=== PATIENT | female | born 1945 | race Caucasian/White ===

== ENCOUNTER 2019-03-13 09:36 | Day surgery (SDC) | payer MEDICARE ==
[2019-03-13] MEDS ORDERED: LIDOcaine 2% 5ml jelly ONE (09:57)
[2019-04-30] MEDS ORDERED: METO-539 PO (03:23)
[2019-04-30] MEDS ORDERED: METF500T PO (03:23)
[2019-04-30] MEDS ORDERED: LEVO25TA2 PO (03:23)
[2019-04-30] MEDS ORDERED: ALLO100T PO (03:23)
[2019-04-30] MEDS ORDERED: ESCI5TAB PO (03:23)
[2019-04-30] MEDS ORDERED: TEMA30CA5 PO (03:23)
[2019-04-30] MEDS ORDERED: GABA-532 PO (03:23)
[2019-04-30] MEDS ORDERED: AMLO2.5T2 PO (03:23)
[2019-04-30] MEDS ORDERED: LISI1TAB28 PO (03:23)
[2019-04-30] MEDS ORDERED: SIMV5TAB58 PO (03:23)
[2019-05-02] MEDS ORDERED: ASPI81TA52 PO (10:46)
== END 2019-03-13 12:09 | disposition home or self-care (01) ==
LOC: WOUND CARE 09:36
PROVIDERS: ATTEND Surgery
DX: E11.621 Type 2 diabetes mellitus with foot ulcer (principal); L97.522 Non-pressure chronic ulcer of other part of left foot with fat layer exposed; E11.622 Type 2 diabetes mellitus with other skin ulcer; L98.492 Non-pressure chronic ulcer of skin of other sites with fat layer exposed; E11.65 Type 2 diabetes mellitus with hyperglycemia; E78.5 Hyperlipidemia, unspecified; I10 Essential (primary) hypertension
CPT/HCPCS: 11042; 36416; 82948; A6209; A4663; A6021; A6154

== ENCOUNTER 2019-03-20 09:02 | Day surgery (SDC) | payer MEDICARE ==
[2019-03-20] MEDS ORDERED: LIDOcaine 2% 5ml jelly ONE (10:10)
[2019-04-30] MEDS ORDERED: ESCI5TAB PO (03:23)
[2019-04-30] MEDS ORDERED: AMLO2.5T2 PO (03:23)
[2019-04-30] MEDS ORDERED: LISI1TAB28 PO (03:23)
[2019-04-30] MEDS ORDERED: METF500T PO (03:23)
[2019-04-30] MEDS ORDERED: GABA-532 PO (03:23)
[2019-04-30] MEDS ORDERED: LEVO25TA2 PO (03:23)
[2019-04-30] MEDS ORDERED: SIMV5TAB58 PO (03:23)
[2019-04-30] MEDS ORDERED: METO-539 PO (03:23)
[2019-04-30] MEDS ORDERED: TEMA30CA5 PO (03:23)
[2019-04-30] MEDS ORDERED: ALLO100T PO (03:23)
[2019-05-02] MEDS ORDERED: ASPI81TA52 PO (10:46)
== END 2019-03-20 10:55 | disposition home or self-care (01) ==
LOC: WOUND CARE 09:02
PROVIDERS: ATTEND Surgery
DX: E11.621 Type 2 diabetes mellitus with foot ulcer (principal); L97.522 Non-pressure chronic ulcer of other part of left foot with fat layer exposed; E11.622 Type 2 diabetes mellitus with other skin ulcer; L98.492 Non-pressure chronic ulcer of skin of other sites with fat layer exposed; E11.65 Type 2 diabetes mellitus with hyperglycemia; E78.5 Hyperlipidemia, unspecified; I10 Essential (primary) hypertension
CPT/HCPCS: 36416; 82948; A4663; A6021; A6154

== ENCOUNTER 2019-04-03 09:25 | Day surgery (SDC) | payer MEDICARE ==
[2019-04-03] MEDS ORDERED: LIDOcaine 2% 5ml jelly ONE (10:28)
[2019-04-30] MEDS ORDERED: TEMA30CA5 PO (03:23)
[2019-04-30] MEDS ORDERED: METO-539 PO (03:23)
[2019-04-30] MEDS ORDERED: SIMV5TAB58 PO (03:23)
[2019-04-30] MEDS ORDERED: METF500T PO (03:23)
[2019-04-30] MEDS ORDERED: LISI1TAB28 PO (03:23)
[2019-04-30] MEDS ORDERED: ESCI5TAB PO (03:23)
[2019-04-30] MEDS ORDERED: LEVO25TA2 PO (03:23)
[2019-04-30] MEDS ORDERED: GABA-532 PO (03:23)
[2019-04-30] MEDS ORDERED: AMLO2.5T2 PO (03:23)
[2019-04-30] MEDS ORDERED: ALLO100T PO (03:23)
[2019-05-02] MEDS ORDERED: ASPI81TA52 PO (10:46)
== END 2019-04-03 11:26 | disposition home or self-care (01) ==
LOC: WOUND CARE 09:25
PROVIDERS: ATTEND Surgery
DX: E11.621 Type 2 diabetes mellitus with foot ulcer (principal); L97.522 Non-pressure chronic ulcer of other part of left foot with fat layer exposed; E11.622 Type 2 diabetes mellitus with other skin ulcer; L98.492 Non-pressure chronic ulcer of skin of other sites with fat layer exposed; E11.65 Type 2 diabetes mellitus with hyperglycemia; E78.5 Hyperlipidemia, unspecified; I10 Essential (primary) hypertension
CPT/HCPCS: 36416; 82948; A4663; A6021; A6154

== ENCOUNTER 2025-01-24 03:14 | Inpatient (IN) | payer MEDICARE, MEDICAID ==
[~2025-01-24] VITALS: Ht 160 cm; Wt 77.5 kg
[2025-01-24] VITALS (17 sets, daily range): BP systolic 94–119; BP diastolic 37–55; PULSE 71–142; RESP 9–18; O2SAT 91–98
[~2025-01-24 03:14] MED LIST: ALLO100T PO; AMLO2.5T2 PO; ASPI81TA52 PO; ESCI5TAB PO; GABA-532 PO; LEVO25TA2 PO; LISI1TAB51 PO; METF500T PO; METO-539 PO; SIMV5TAB58 PO; TEMA30CA5 PO
[2025-01-24] MEDS ORDERED: NORepinephrine 32mg/250mL bag 250 ML IV SCH (03:25)
--- NOTE | 2025-01-24 03:33 | Physician Documentation ---
History of Present Illness ~ Stated Complaint: NJOC Time Seen by MD: 03:22 HPI Patient presents to the emergency room as a transfer from [facility]. Patient was brought to the emergency room for 4-5 days of vomiting and diarrhea. Family brought her in because she began to be altered. Workup at sending facility showed that she was septic with urinary tract infection. Zosyn ordered for the infectious process. Patient became hypotensive in his requiring pressors. History of atrial fibrillation not on in his to coagulation secondary to fall risk. Patient does have residual right-sided deficits secondary to previous stroke. Also noted large decubitus ulcer on sacrum that goes to the bone. Workup also showed that patient is an acute renal failure. Concern for possible fluid overload therefore only 500 cc of IV fluid was administered. Patient's medical history in addition to atrial fibrillation shows GERD, dyslipidemia, hypertension, hypothyroid Medication Reconciliation Allergies: Coded Allergies: zolpidem (Verified Allergy, Mild, 01/24/25) PATIENT TOOK AMBIEN AND THEN SET HER KITCHEN ON FIRE COOKING IN HER SLEEP Scheduled Amlodipine Besylate (Amlodipine Besylate), 1 TAB PO DAILY, (Reported) Atorvastatin Calcium (Atorvastatin Calcium), 1 TAB PO DAILY, (Reported) Baclofen (Baclofen), 1 TAB PO TID, (Reported) Clopidogrel Bisulfate (Clopidogrel), 1 TAB PO DAILY, (Reported) Escitalopram Oxalate (Escitalopram Oxalate), 1 TAB PO DAILY, (Reported) Gabapentin (Gabapentin), 200 MG PO TID, (Reported) Omeprazole (Omeprazole), 1 CAP PO TID, (Reported) Scheduled PRN Hydroxyzine Hcl* (Atarax*), 1 TAB PO TID PRN for ITCHING, (Reported) Discontinued Medications Allopurinol* (Allopurinol*), 2 TAB PO DAILY, (Reported) Discontinued Reason: patient no longer taking Amlodipine* (Norvasc*), 4 TAB PO DAILY, (Reported) Discontinued Reason: Other Aspirin (Aspirin EC), 1 TABLET PO DAILY Discontinued Reason: patient no longer taking Escitalopram Oxalate* (Lexapro*), 2 TAB PO DAILY, (Reported) Discontinued Reason: patient no longer taking Gabapentin (Gabapentin), 1 CAP PO Q6H, (Reported) Discontinued Reason: patient no longer taking Lisinopril/Hydrochlorothiazide (Lisinopril-Hctz 20-12.5 mg Tab), 1 TAB PO BID, (Reported) Discontinued Reason: completed med therapy Metformin Hcl* (Glucophage*), 2 TAB PO Q12H, (Reported) Discontinued Reason: patient no longer taking Metoprolol Succinate* (Toprol Xl*), 1 TAB PO BID, (Reported) Discontinued Reason: patient no longer taking Simvastatin* (Zocor*), 2 TAB PO DAILY, (Reported) Discontinued Reason: patient no longer taking Temazepam* (Restoril*), 1 CAP PO HS, (Reported) Discontinued Reason: patient no longer taking levothyroxine sodium* (Synthroid*), 3 TAB PO DAILY, (Reported) Discontinued Reason: patient no longer taking Past Medical History Past Medical History: High Cholesterol, Hypertension, Diabetes Past Surgical History: noncontributory Alcohol Use: None Drug Use: none Review of Systems ROS All review of systems negative except as per HPI Physical Exam Physical Exam General: Patient is awake, alert, oriented x4 in no acute distress and well appearing.~ Head: Normocephalic and atraumatic. Eyes: Conjunctival normal. EOMI. PERRL. ENT: Mucous membranes moist. Neck: Supple, trachea is midline. Chest: Clear to auscultation bilaterally without rales, rhonchi, or wheezes. There is no accessory muscle use or retractions. Cardiac: RRR without murmurs, gallops, or rubs. Neuro: Noted residual right-sided deficits Progress Progress Note Spoke with historiography professor who is aware of patient Results/Orders Results/Orders Orders - ASHISH ORTEZ MD Cbc/Diff (01/24/25 03:34) BMP (01/24/25 03:34) Norepinephrine 8mg/ 250ml Ns (Norepineph (01/24/25 03:40) Normal Saline 1000ml (Sodium Chloride 10 (01/24/25 04:40) Completed Orders - ASHISH ORTEZ MD Norepinephrine 32mg/250ml Bag (Norepinep (01/24/25 03:25) Electrocardiogram (01/24/25 03:34) Diltiazem Iv (Cardizem Iv 5mg/Ml Inj.) (01/24/25 03:45) Normal Saline 1000ml (Sodium Chloride 10 (01/24/25 03:45) Medications Received in ER Medications (Trade) Dose Ordered Sig/Nikita Route PRN Reason Start Time Stop Time Status Last Admin Dose Admin Norepinephrine Bitartrate 250 ml @ 12.188 mls/ hr [id number] IV 01/24/25 03:40 01/24/25 03:51 12.188 MLS/HR (Cardizem IV 5mg/ ml inj.) 5 mg ONCE ONCE IV 01/24/25 03:45 01/24/25 03:46 DC 01/24/25 03:57 5 MG Sodium Chloride 1,000 ml @ 1,000 mls/hr ONCE ONCE IV 01/24/25 03:45 01/24/25 04:44 DC 01/24/25 03:53 1,000 MLS/HR Sodium Chloride 1,000 ml @ 1,000 mls/hr ONCE ONCE IV 01/24/25 04:40 01/24/25 05:39 01/24/25 04:40 1,000 MLS/HR Vital Signs 01/24/25 01/24/25 01/24/25 01/24/25 03:17 03:51 03:57 04:02 Temp 97.5 Pulse 142 142 Resp 16 14 B/P (MAP) 104/59 79/51 118/56 Pulse Ox 100 O2 Flow Rate 0 01/24/25 01/24/25 04:28 04:32 Pulse 130 87 Resp 14 13 B/P (MAP) 91/57 (68) 115/53 (73) Pulse Ox 97 97 Laboratory Tests Test 01/24/25 04:26 CBC Comment Chemistry Comments Medical Decision Making Findings Patient presents to the emergency room as a transfer for urosepsis from [facility]. She is on pressors. Precision Jig Grinder consulted. Patient does appear dry along with acute renal failure therefore additional IV fluids have been ordered. Departure Admitted to Inpatient Unit: yes, to historiography professor Impression: Primary Impression: Sepsis Additional Impressions: Urinary tract infection Metabolic encephalopathy Decubitus ulcer Acute kidney failure Condition: Critical Referrals: NO PRIMARY CARE PROVIDER (PCP) Critical Care Note Total Time (mins): 55 Critical Care Note The very real possibility of a deterioration of this patient's condition required the highest level of my preparedness for sudden, emergent intervention. I provided critical care services, which included medication orders, frequent reevaluations of the patient's condition and response to treatment, ordering and reviewing test results, and discussing the case with various consultants. Excludes time spent performing separately billable procedures. The critical care time associated with the care of the patient was 55 minutes not counting procedures Signature Scribe Signature: No scribe Attestation: The note accurately reflects work and decisions made by me.Ashish Ortez MD 01/24/25 05:05 ASHISH ORTEZ MD Jan 24, 2025 03:33
[2025-01-24] MEDS: NORepinephrine 8mg/ 250ml NS 250 ML IV SCH (03:51)
[2025-01-24] MEDS: normal saline 1000ml 1,000 ML IV ONE ×2 (03:53→04:40)
[2025-01-24] MEDS: diltiazem 5mg/ml 5ml inj. IV ONE (03:57)
--- NOTE | 2025-01-24 04:15 | ELECTROCARDIOGRAPH REPORT ---
[facility] Test Date: 2025-01-24 Test Time: 04:14:42 Pat Name: JADE VIZCAINO Department: EMERGENCY ROOM Room: [facility] 2008 Gender: F Ski Tow Operator: RIGOBERTO : 1945 Requested By: CYNTHIA STEINBERG Order Number: [id number] Reading MD: Dr. Kevin Martinez Measurements Intervals [place] Rate: 122 P: 0 TX: 0 QRS: 43 QRSD: 111 T: 120 QT: 322 QTc: 459 Interpretive Statements Atrial fibrillation Low voltage, extremity and precordial leads Abnormal T, consider ischemia, lateral leads Electronically Signed On 01-24-2025 6:10:[address] Kevin Martinez Please click the below link to view image of tracing.
[2025-01-24] MEDS ORDERED: AMLO-708 PO (04:39)
[2025-01-24] MEDS ORDERED: BACL5TAB PO (04:39)
[2025-01-24] MEDS ORDERED: CLOP75TA34 PO (04:39)
[2025-01-24] MEDS ORDERED: ATOR-2 PO (04:39)
--- NOTE | 2025-01-24 04:51 | HISTORY AND PHYSICAL ---
History & Physical - Short Providers to CC ~ History of Present Illness Chief Complain & History Patient is a 79-year-old female who was taken to [place] ER [facility] from [facility]. In the ER she was hypoxic central line was placed and received 1 L of LR and started on Levophed after receiving Zosyn. Patient apparently is bedridden and has 10 cm decubitus ulcer. The labs at other facility showed white blood cell of 28,000 and hemoglobin of 10.4 potassium of 3.6 and creatinine of 3.6. Patient had Hernandez catheter placed. When I saw the patient patient has been lethargic. She is currently on Levophed and receiving 2 L of NS. Patient also is in atrial fibrillation with RVR and received 5 mg of IV Cardizem and heart rate now is 129. Allergies: Coded Allergies: zolpidem (Verified Allergy, Mild, 01/24/25) PATIENT TOOK AMBIEN AND THEN SET HER KITCHEN ON FIRE COOKING IN HER SLEEP Home Medications Home Medications Active Reported Clopidogrel (Clopidogrel Bisulfate) 75 Mg Tablet 1 Tab PO DAILY Baclofen 5 Mg Tablet 1 Tab PO TID Atorvastatin Calcium 80 Mg Tablet 1 Tab PO DAILY Amlodipine Besylate 10 Mg Tablet 1 Tab PO DAILY Exam Vitals: Vital Signs Date Time Temp Pulse Resp B/P (MAP) Pulse Ox O2 Delivery O2 Flow Rate FiO2 01/24/25 04:32 87 13 115/53 (73) 97 01/24/25 03:17 97.5 0 Advance Care Planning Advanced Care plannin - 30 Minutes Problem\Assessment\Plan Additional Plan Assessment: - Septic shock secondary to UTI - Atrial fibrillation with RVR - GENE: - Decubitus ulcer: - Plan: - Admit to the ICU - To finish the second liter of NS - Continue Levophed to keep MAP above 65 - If the heart rate remains uncontrolled we will give another dose of Cardizem IV - Monitor the renal function, urine output and electrolytes - Renal ultrasound to rule out hydronephrosis - Heparin subcu 5000 units every 12 hours for DVT prophylaxis - After finishing the current NS start patient on LR at 125 mL/h. - Surgical consult for decubitus ulcer - Patient is DNR and that has been documented in the chart. I personally saw the patient via audiovisual and discussed with the ER physician and the SALESPERSON [employer]. CLIF FRAGA MD Jan 24, 2025 04:51
[2025-01-24] MEDS ORDERED: OMEP10CA5 PO (04:55)
[2025-01-24] MEDS ORDERED: GABA-530 PO (04:55)
[2025-01-24] MEDS ORDERED: HYDR-3686 PO (04:55)
[2025-01-24] MEDS ORDERED: ESCI5TAB17 PO (04:55)
[2025-01-24 04:58] LABS: MEAN PLATELET VOLUME 8.4 FL (7.4-10.4); RED CELL DISTRIBUTION WIDTH 15.8 % (11.5-14.5)
[2025-01-24] MEDS ORDERED: NORepinephrine 8mg/ 250ml NS 250 ML IV PRN (05:00)
[2025-01-24 05:05] LABS: CREATININE 3.22 MG/DL (0.40-0.90); TOTAL CARBON DIOXIDE 18.8 MMOL/L (24-32); eCRCL 12 ML/MIN; eGFR 14 ML/MIN
[2025-01-24] MEDS: LidoCAINE 2% Topical Jelly 11mL syringe (UROJET) TOP ONE (05:14)
[2025-01-24 06:00] LABS: BANDS% (MANUAL) 2 % (0-10); LYMPHOCYTES % (MANUAL) 1 % (21-51); MONOCYTES % (MANUAL) 1 % (2-12); NEUTROPHILS % (MANUAL) 96 % (42-75); PLATELET ESTIMATE NORMAL
[2025-01-24] MEDS ORDERED: dextrose 50%-water 50ml dispensing syringe IV PRN ×2 (08:30)
[2025-01-24] MEDS ORDERED: DEXTROSE 15 GM of carb/4 tabs (each vial/BOTTLE has 4 tablets) PO PRN ×2 (08:30)
[2025-01-24] MEDS ORDERED: glucagon, human recombinant 1mg kit SUBCUT PRN (08:30)
[2025-01-24] MEDS ORDERED: amiodarone inj. 450 MG in dextrose 5%-water 241 ML IV SCH (08:35)
[2025-01-24] MEDS ORDERED: amiodarone 150mg/dext, iso-os 100 ML IV ONE (08:50)
[2025-01-24] MEDS ORDERED: amiodarone/D5 360MG/200ML BAG 200 ML IV SCH (08:50)
[2025-01-24] MEDS: CefTRIAXone 2gm/D5W 50ml BAG 50 ML IV ONE (09:18)
[2025-01-24] MEDS: heparin, porcine 5000 units/ml vial SQ SCH (09:18)
[2025-01-24] MEDS: ringers solution, lacted 1,000 ML IV ONE ×2 (09:19→10:28)
[2025-01-24] MEDS: albumin (human) 25% 100 ML IV solution IV ONE (09:19)
[2025-01-24] MEDS ORDERED: MEROPENEM 1GM/NS 50ML IVPB IV SCH (11:09)
--- NOTE | 2025-01-24 11:18 | PROGRESS NOTE- Residence ---
Progress Note - Resident Providers to CC Resident Creating Document: LUIS M FREY RES ~ Antibiotic Timeout Antibiotic Ordered?: Yes Subjective seen & examined the patient at bedside.still in mild confusion but responding to verbal questions.she told us that she is feeling better. still requiring norepinephrine drip. Objective Vital Signs Date Time Temp Pulse Resp B/P (MAP) Pulse Ox O2 Delivery O2 Flow Rate FiO2 01/24/25 09:13 101/51 01/24/25 09:00 96.6 90 18 95 01/24/25 08:00 Room Air 01/24/25 03:17 0 Result Diagram: 01/24/25 0426 01/24/25 0426 General: Patient is awake, alert, oriented to person but not the place,time. no acute distress and well appearing Head: Normocephalic and atraumatic. Eyes: Conjunctival normal. EOMI. PERRL. ENT: Mucous membranes moist. Neck: Supple, trachea is midline. Chest: Clear to auscultation bilaterally without rales, rhonchi, or wheezes. There is no accessory muscle use or retractions. Cardiac: RRR without murmurs, gallops, or rubs. Neuro: Noted residual right-sided deficits Advance Care Planning Advanced Care planning: Add on additional 30 min Plan Plan Septic shock secondary to UTI BCID- Biofire Blood Culture Identification Panel positive for Enterobacteriaceae, E coli Stage IV decubitus ulcers(10 cm) Acute Metabolic Enchephalopathy 2/2 UTI WBC counts are super elevated, 36.5 Urinalysis positive for nitrate and leukocyte esterase suggestive of UTI Pending culture report Urine tox is negative Procalcitonin is elevated, 2.61. Lactic acid isNormal,1.7 Received 2 L of normal saline in the ER and we did 2 L of lactated Ringer's Received 25% human albumin of 400 mL 1 time and currently on 5% human albumin at the rate of 75 mL/hour. Received 1 dose of ceftriaxone We are continuing lactated ringer at the rate of 125 mL/hour On norepinephrine 0.24 mcg per kg per minutewith a target of MAP >65 On meropenem IV q.12h wound care consult were placed and will appreciate the recommendations c diff is ordered Atrial fibrillation with RVR Rate is controlled with 5 mg of diltiazem 1 time dose Patient was on metoprolol 25 mg Toprol-XL but currently not taking it Diabetes mellitus A1c is 4.8 Blood glucose is 189 Currently on low-dose Humalog q.6h protocol Continue to monitor blood glucose with a target of 140-180 Normocytic normochromic anemia H& H if 9.2/27.3 We will continue to monitor H& H and will transfuse if hemoglobin is less than 7 GENE Hyponatremia Hypokalemia Normal anion gap metabolic acidosis S .cr-3.22,BUN- 88 Na-130, K- 3.3,Cl-97,co2-18 on LR @125ml/hr ordered renal ultrasound to rule out hydronephrosis Monitor the renal function, urine output and electrolytes consulted Waste Elimination, & will appreciate the recommendations Hypertension low bp's 103/43 (map-63) continue to monitor Blood pressure. Severe Protein Malnutrition Hypoalbuminemia on 5% human albumin @ 75ml/hr continue to monitor cmp Code status- DNR DVT Prophylaxis- heparin subQ lines/tubes- central line prognosis- guarded Date of Service: Jan 24, 2025 Billing Provider: DARRELL STRINGER MD, VENKATESH, RES Jan 24, 2025 11:18
[2025-01-24] MEDS: ringers solution, lacted 1,000 ML IV SCH (11:30)
[2025-01-24] MEDS: albumin (Human) 5% 250ml 250 ML IV SCH (11:55)
[2025-01-24] MEDS: NORepinephrine 8mg/ 250ml NS 250 ML IV PRN (12:04)
[2025-01-24 12:47] LABS: LEUKOCYTE ESTERASE ,URINE MODERATE (Neg); NITRITES, URINE POSITIVE (Neg); OCCULT BLOOD,URINE LARGE (Neg)
[2025-01-24 12:48] LABS: UA COLLECTION TYPE NON-SPECIFIED
[2025-01-24 13:06] LABS: RENAL CELLS, URINE FEW /HPF; SQUAMOUS EPITHELIAL CELL,UR FEW /LPF (FEW)
[2025-01-24 13:16] LABS: YEAST FEW /HPF (NEGATIVE)
[2025-01-24 13:25] LABS: URINE AMPHETAMINE SCREEN NEGATIVE (Neg); URINE BARBITUATE SCREEN NEGATIVE (Neg); URINE BENZODIAZEPINES SCREEN NEGATIVE (Neg); URINE CANNABINOID SCREEN NEGATIVE (Neg); URINE COCAINE SCREEN NEGATIVE (Neg); URINE METHADONE SCREEN NEGATIVE (Neg); URINE OPIATE SCREEN NEGATIVE (Neg); URINE PHENCYCLIDINE SCREEN NEGATIVE (Neg)
[2025-01-24] MEDS: INSULIN LISPRO 100 UNIT/ML INSULN.PEN MULTI-DOSE SQ SCH (14:00)
[2025-01-24 16:35] LABS: PRO BRAIN NATRIURETIC PEPTIDE 8300 PG/ML (0-450)
[2025-01-24] MEDS ORDERED: magnesium sulf-water 4G/100mL 100 ML IV PRN (17:55)
[2025-01-24] MEDS ORDERED: magnesium sulf-water 2g/50mL 50 ML IV PRN (17:55)
[2025-01-24] MEDS ORDERED: potassium Cl 20 mEq SR tablet PO PRN ×2 (17:55)
[2025-01-24] MEDS ORDERED: potassium Cl 40MEQ/1/2NS 520ml 520 ML IV PRN (17:55)
[2025-01-24] MEDS: potassium Cl 20mEq/100mL bag 200 ML IV ONE (18:13)
--- NOTE | 2025-01-24 18:14 | RADIOLOGY REPORT ---
RENAL ULTRASOUND History: UTI,GENE Comparison: None Technique: Multiple real-time sonographic images of the kidney and bladder were obtained in conjuncti on with Doppler imaging. Findings: The right kidney measures 9.7 cm and demonstrates no evidence of hydronephrosis, perinephric fluid co llection, or shadowing stone. The left kidney measures 8.8 cm and demonstrates no evidence of hydronephrosis, perinephric fluid col lection, or shadowing stone. Urinary bladder: Decompressed by Hernandez catheter. Ascites fluid, Mesenteric edema. Impression: No hydronephrosis. Ascites fluid, Mesenteric edema
--- NOTE | 2025-01-24 18:23 | CONSULTATION REPORT - RESIDENT ---
Consult Providers to CC Resident Creating Document: DYAN SIMPSON RES History of Present Illness Reason for Admit\Complaint: Septic shock History of Present Illness 79-year-old female patient who appears older than her age with a past medical history of CVA with right-sided contractures of upper and lower limbs and atrial fibrillation presents to the hospital as a transfer due to complaints of increased altered mental status today in the morning. She lives with her niece who is also her city engineer, the niece is a BUTTON MACHINE OPERATOR. Granddaughter at bedside during my exam; spoke with the son on the phone and neither of them are very aware of the situation at the niece's house. Patient is currently being evaluated for altered mental status secondary to a septic shock with source likely from UTI or decubitus ulcer, on Levophed after 2 L IV fluid resuscitation and failing to respond but on room air with no respiratory compromise. Last night at admission, she was in AFib with RVR- received IV Cardizem. Allergies: Coded Allergies: zolpidem (Verified Allergy, Mild, 01/24/25) PATIENT TOOK AMBIEN AND THEN SET HER KITCHEN ON FIRE COOKING IN HER SLEEP Home Medications Home Medications Active Reported Omeprazole 10 Mg Capsule.dr 1 Cap PO TID 30 Days Atarax* (Hydroxyzine HCl) 25 Mg Tablet 1 Tab PO TID PRN Gabapentin 100 Mg Capsule 200 Mg PO TID Escitalopram Oxalate 5 Mg Tablet 1 Tab PO DAILY Clopidogrel (Clopidogrel Bisulfate) 75 Mg Tablet 1 Tab PO DAILY Baclofen 5 Mg Tablet 1 Tab PO TID Atorvastatin Calcium 80 Mg Tablet 1 Tab PO DAILY Amlodipine Besylate 10 Mg Tablet 1 Tab PO DAILY Past Medical History Past Medical History Atrial fibrillation CVA with right-sided weakness Past Surgical History Surgical History Comment Unknown Past Social History Social History Comment Completely bed-bound ROS ROS Unable to be obtained as the patient is fatigued to speak Exam Vitals: Vital Signs Date Time Temp Pulse Resp B/P (MAP) Pulse Ox O2 Delivery O2 Flow Rate FiO2 01/24/25 17:00 97.7 96 13 115/45 (68) 93 Room Air 01/24/25 08:00 21 01/24/25 03:17 0 General: General: Awake and Alert, tired appearing. HEENT: Conjunctiva pale, Sclera clear, Mucus Membranes dry. Resp: Unlabored. Diminished right basilar breath sounds Heart: Irregularly irregular, normal S1 and S2 without murmur, rub or gallop. Abdomen: Distended, tense but nontender. Bowel sounds present Extremities: 3+ bilateral pitting edema present, right lower limb> left lower limb Skin: Warm and Dry. Diagnostic Data Last Recorded Lab Results: 01/24/2542501/24/25425 Additional Plan Acute kidney injury: BUN creatinine ratio normal- secondary to prerenal versus ATN Status post 2 L IV fluid resuscitation, currently on Levophed Hernandez's catheter in place, no urine output. Discontinue LR, start D5 water 3 amps at a rate of 150 cc/hour. Continue the albumin Awaiting renal ultrasound and spot studies Continue to monitor strictly output through the Hernandez's, if continues to have no output then we will consider starting HD or CVVH tomorrow Electrolyte abnormalities: Hyponatremia, hypokalemia, hypochloremia, and low bicarbonate NAGMA Follow osmolality studies and urine spot studies Switch to IV bicarbonate drip overnight Continue monitoring CMP Hypoalbuminemia: 1.2 Likely secondary to poor nutrition; absent nephrotic range proteinuria for renal losses to be etiology Recommend tube feeds with Nepro Continue IV albumin High-risk for thrombosis- with right lower limb greater than left lower limb; we will order Doppler ultrasound of the right lower limb Normocytic and normochromic anemia: Hemoglobin 9.2 Follow iron studies Severe septic shock: Secondary to UTI/decubitus ulcer- unstageable Recommend Wound consult On IV meropenem Continue Levophed Management as per ICU Lines: Right IJV Code status: DNR Dyan Simpson PGY2, Internal medicine resident Attending Note: Care plan reviewed. patient in sepsis, with severe leukocytosis, volume depletion and GENE, possibly in ATN, as urine output has been dismal. will switch iv fludis to bicarb based fluids tonight and corect metabolic acidosis as much as possible. adjust antibiotics to the eGFR. caution with meropenem to avoid any neurological side effects with higher doses mismatched for the eGFR. care plan reviewed with the resdient. will follow up in am. Scott Degroot MD Nephrology/[facility] Date of Service: Jan 24, 2025 Billing Provider: SCOTT DEGROOT MD, DEEPANJALI, VARGAS Jan 24, 2025 18:23 SCOTT DEGROOT MD Jan 24, 2025 19:36
--- NOTE | 2025-01-24 18:26 | CONSULTATION REPORT - RESIDENT ---
Consult Providers to CC Resident Creating Document: LINAKENIA EM RES History of Present Illness Reason for Admit\Complaint: Sepsis History of Present Illness This is a 79-year-old female with a history of hypotension, diabetes mellitus, atrial fibrillation, decubitus ulcers presented to the ER as a transfer from [facility] where she presented for 4-5 days of vomiting and diarrhea. She was brought by her family because of increased confusion. Workup at the [place] facility showed sepsis with UTI. Patient was hypotensive requiring vasopressors. And was transferred to [facility]. Patient is currently in the ICU being managed by track manager. Allergies: Coded Allergies: zolpidem (Verified Allergy, Mild, 01/24/25) PATIENT TOOK AMBIEN AND THEN SET HER KITCHEN ON FIRE COOKING IN HER SLEEP Home Medications Home Medications Active Reported Omeprazole 10 Mg Capsule.dr 1 Cap PO TID 30 Days Atarax* (Hydroxyzine HCl) 25 Mg Tablet 1 Tab PO TID PRN Gabapentin 100 Mg Capsule 200 Mg PO TID Escitalopram Oxalate 5 Mg Tablet 1 Tab PO DAILY Clopidogrel (Clopidogrel Bisulfate) 75 Mg Tablet 1 Tab PO DAILY Baclofen 5 Mg Tablet 1 Tab PO TID Atorvastatin Calcium 80 Mg Tablet 1 Tab PO DAILY Amlodipine Besylate 10 Mg Tablet 1 Tab PO DAILY Past Medical History Past Medical History Hypertension Diabetes mellitus Atrial fibrillation CVA with right-sided Past Social History Social History Comment Denies any history of smoking Bed-bound Exam Vitals: Vital Signs Date Time Temp Pulse Resp B/P (MAP) Pulse Ox O2 Delivery O2 Flow Rate FiO2 01/24/25 17:00 97.7 96 13 115/45 (68) 93 Room Air 01/24/25 08:00 21 01/24/25 03:17 0 General: General: Patient is awake, alert, oriented to person but not the place,time. no acute distress and well appearing Head: Normocephalic and atraumatic. Eyes: Conjunctival normal. EOMI. PERRL. ENT: Mucous membranes moist. Neck: Supple, trachea is midline. Chest: Clear to auscultation bilaterally without rales, rhonchi, or wheezes. There is no accessory muscle use or retractions. Cardiac: RRR without murmurs, gallops, or rubs. Neuro: Noted residual right-sided deficits Diagnostic Data Last Recorded Lab Results: 01/24/25 0426 01/24/25 0426 Additional Plan Septic shock secondary to UTI BCID- Biofire Blood Culture Identification Panel positive for Enterobacteriaceae, E coli Stage IV decubitus ulcers(10 cm) Acute Metabolic Enchephalopathy 2/2 UTI WBC counts are super elevated, 36.5 Urinalysis positive for nitrate and leukocyte esterase suggestive of UTI Pending culture report Urine tox is negative Procalcitonin is elevated, 2.61.Lactic acid isNormal,1.7 Received 2 L of normal saline in the ER and we did 2 L of lactated Ringer's Received 25% human albumin of 400 mL 1 time and currently on 5% human albumin at the rate of 75 mL/hour. Received 1 dose of ceftriaxone We are continuing lactated ringer at the rate of 125 mL/hour On norepinephrine 0.24 mcg per kg per minutewith a target of MAP >65 On meropenem IV q.12h wound care consult were placed and will appreciate the recommendations c diff is ordered -management as per track manager Atrial fibrillation with RVR Rate is controlled with 5 mg of diltiazem 1 time dose Patient was on metoprolol 25 mg Toprol-XL but currently not taking it Diabetes mellitus A1c is 4.8 Blood glucose is 189 Currently on low-dose Humalog q.6h protocol Continue to monitor blood glucose with a target of 140-180 Normocytic normochromic anemia H& H if 9.2/27.3 We will continue to monitor H& H and will transfuse if hemoglobin is less than 7 GENE Hyponatremia Hypokalemia Normal anion gap metabolic acidosis S .cr-3.22,BUN- 88 Na-130, K- 3.3,Cl-97,co2-18 on LR @125ml/hr ordered renal ultrasound to rule out hydronephrosis Monitor the renal function, urine output and electrolytes Hypertension low bp's 103/43 (map-63) continue to monitor Blood pressure. code status- DNR DVT Prophylaxis- heparin subQ lines/tubes- central line prognosis- guarded Date of Service: Jan 24, 2025 Billing Provider: HILDA RAMIREZ MD Common Visit Codes: [id number] INP/OBS CARE(MOD) KENIA MILLS, RES Jan 24, 2025 18:26 HILDA RAMIREZ MD Jan 25, 2025 17:09
[2025-01-24] MEDS: sodium bicarbonate 1meq/ml inj 150 ML in dextrose 5%-water 1,000 ML IV SCH (20:19)
[2025-01-24] MEDS: MEROPENEM 1GM/NS 50ML IVPB IV SCH (21:17)
[2025-01-25] VITALS (29 sets, daily range): BP systolic 84–128; BP diastolic 37–67; PULSE 69–103; RESP 7–22; TEMP 96.4–97.2; O2SAT 88–97
[2025-01-25 00:08] LABS: OSMOLALITY UA 248.0 MOSM/K (50-1400)
[2025-01-25 00:15] LABS: CREATININE,URINE RANDOM 89.0 MG/DL; TOTAL PROTEIN,URINE RANDOM 188.1 MG/DL; UA UREA RANDOM 265.0 MG/DL
[2025-01-25 03:09] LABS: MEAN PLATELET VOLUME 8.3 FL (7.4-10.4); RED CELL DISTRIBUTION WIDTH 16.2 % (11.5-14.5)
[2025-01-25 03:18] LABS: CREATININE 2.85 MG/DL (0.40-0.90); TOTAL CARBON DIOXIDE 22.0 MMOL/L (24-32); eCRCL 13 ML/MIN; eGFR 16 ML/MIN
[2025-01-25] MEDS: potassium Cl 20mEq/100mL bag 100 ML IV SCH (04:53)
[2025-01-25] MEDS: K and/or MAG REPLACEMENT MC SCH (08:00)
[2025-01-25] MEDS: ringers solution, lacted 1,000 ML IV ONE (09:16)
[2025-01-25 10:03] LABS: MEAN PLATELET VOLUME 8.3 FL (7.4-10.4); RED CELL DISTRIBUTION WIDTH 16.0 % (11.5-14.5)
[2025-01-25] MEDS: pantoprazole 40mg Tablet.DR PO SCH (11:05)
[2025-01-25 11:11] LABS: ABG BASE EXCESS -6.3 mmol/L (-2.0-3.0); ABG HCO3 18.0 mmol/L (21.0-28.0); ABG OXYGEN SATURATION 91.8 % (94.0-98.0); ABG PCO2 (T) 30.6 mmHg (32.0-45.0); ABG PH (T) 7.388 (7.350-7.450); ABG PO2 (T) 66.8 mmHg (83.0-108.0); ALLEN'S TEST POSITIVE; FCOHb 1.8 % (0.5-1.5); FHHb 8.0 % (0.0-5.0); FIO2 21.0 mmHg/%; FMetHb 0.3 % (0.0-1.5); FO2Hb 89.9 % (94.0-98.0); MODE ROOM AIR; PATIENT TEMPERATURE 37.0; TOTAL HEMOGLOBIN 7.5 G/dl (12.0-16.0)
--- NOTE | 2025-01-25 11:59 | VASCULAR REPORT ---
Right lower extremity venous duplex Clinical History: pain Comparison: None Technique: Duplex Doppler evaluation of the deep venous system of the right lower extremity from the common femo ral vein to the popliteal vein including color Doppler and spectral/pulsed waveform analysis was perf ormed. Findings: The common femoral vein demonstrates appropriate compressibility and waveform variability. There is compressibility/patency of the great saphenous vein at the proximal thigh. The femoral vein demonstrates appropriate compressibility and waveform variability. The deep femoral vein demonstrates appropriate compressibility and waveform variability. The popliteal vein demonstrates appropriate compressibility and waveform variability. There is normal compressibility at the tibioperoneal trunk. Impression: No right femoropopliteal venous thrombosis. Contralateral common femoral vein is patent.
[2025-01-25] MEDS: HYDROmorphone inj. 0.5 MG/0.5 ML DISP.SYRIN IV ONE (12:29)
[2025-01-25 14:18] LABS: OCCULT BLOOD STOOL NEGATIVE (Neg)
[2025-01-25] MEDS ORDERED: Duosol 4K/3 Ca (w/calcium) 5,000 ML HE SCH (14:30)
[2025-01-25] MEDS ORDERED: calcium chloride inj. 1,000 MG in normal saline 100ml IV soln 100 ML IV PRN (14:30)
[2025-01-25] MEDS ORDERED: magnesium sulf-water 4G/100mL 100 ML IV PRN (14:30)
[2025-01-25] MEDS ORDERED: potassium Cl 40MEQ/270ML bag 270 ML IV PRN (14:30)
--- NOTE | 2025-01-25 15:59 | PROGRESS NOTE- Residence ---
Progress Note - Resident Providers to CC Resident Creating Document: DYAN SIMPSON RES ~ Central Line/PICC still needed: Yes Central Line/PICC Necessity: Prolonged IV access req Hernandez-Non Protocol Hernandez Indications Met/Not Met: F/C Indications Met Antibiotic Timeout Antibiotic Ordered?: Yes Subjective Patient continues to be confused and minimally responding to questions although she wakes up appropriately. Unable to obtain any information from the patient. Contacted the granddaughter, Silva who provided consent for CVVH. Objective Vital Signs Date Time Temp Pulse Resp B/P (MAP) Pulse Ox O2 Delivery O2 Flow Rate FiO2 01/25/25 15:49 92/41 01/25/25 15:00 84 8 91 Room Air 01/25/25 04:00 97.7 01/24/25 20:00 21 01/24/25 03:17 0 Result Diagram: 01/25/25 0953 01/25/25 0245 General: Sleeping HEENT: Conjunctiva pale, Sclera clear, Mucus Membranes dry. Resp: Unlabored. Diminished right basilar breath sounds Heart: Irregularly irregular, normal S1 and S2 without murmur, rub or gallop. Abdomen: Distended, tense but nontender. Bowel sounds present Extremities: 3+ bilateral pitting edema present, pallor+. No cyanosis or clubbing Skin: Warm and Dry. Advance Care Planning Advanced Care plannin - 30 Minutes Assessment Assessment This is a 79-year-old female patient with a past medical history so far known to be atrial fibrillation with RVR presents to the hospital in septic shock as a transfer from [facility] on . She was found to have a UTI which was consider the source of an infection but was simultaneously also found to have an unstageable sacral decubitus ulcer which could also be the etiology for the septic shock. Blood cultures positive for Enterobacteriaceae and E coli. However, she tends to have a very high white count and after advocate hydration now of about 6 L IV fluid boluses, her hemoglobin has started drop which is likely her actual hemoglobin level as her skin is quite pale to be at her presentation hemoglobin of 9.2. Nephrology was consulted due to worsening creatinine and no urine output over the last 24-48 hours. Consent for dialysis CVVH taken and she would require long-term care. She is a DNR and the prognosis is poor. Plan Plan Acute kidney injury: Secondary to prerenal injury After receiving 6 L IV fluid resuscitation and Levophed, creatinine slightly improved to 2.8. Continues to have no urine output Starting CVVH after Louie placement today. Consent taken Continue bicarb drip, and albumin Close monitoring of BMP Poor prognosis Electrolyte abnormalities: Hyponatremia, hypokalemia, hypochloremia, and low bicarbonate NAGMA Continue the bicarb drip Hypoalbuminemia: 1.2 Likely secondary to poor nutrition; absent nephrotic range proteinuria for renal losses to be etiology Recommend tube feeds with Nepro Continue IV albumin Doppler ultrasound ruled out VTE Normocytic and normochromic anemia: Hemoglobin dropped to 6.9 today- 1 unit PRBC transfusion at CVVH recommended Follow iron studies Severe septic shock: Secondary to UTI/decubitus ulcer- unstageable Recommend Wound consult On IV meropenem Continue Levophed Management as per ICU Lines: Left central line, right Louie cath for CVVH Code status: DNR Dyan Simpson PGY2, Internal medicine resident Attending Note: the patient was seen and examined. She is very somnolent. Her CVP is 14. CXR is showing central pulmonary congestion. Her urine output is dismal. will proceed with louie placement and CVVh as she is shocky. She is in ATN. I spoke to her granddaughter. APS has already been alerted by icu team due to her deep decubitus. and have agreed to place the dialysis cath. CVVh orders written. She is critically ill. I have arranged for TSh to be sent as Iwould like to rule out myxedema. She has history of hypothyroidism and is supposedly on synthroid. But I am not sure if she has been taking it. It took 40 minutes to coordinate all the care talking to family to get consent, bedside examin, review records and arrange for CVVH in this critically ill woman. Scott Degroot MD Nephrology / [facility] Date of Service: Jan 25, 2025 Billing Provider: SCOTT DEGROOT MD, DEEPANJALI, RES Jan 25, 2025 15:59 SCOTT DEGROOT MD Jan 25, 2025 17:53
--- NOTE | 2025-01-25 16:58 | PROGRESS NOTE- Residence ---
Progress Note - Resident Providers to CC Resident Creating Document: ROBIN FREYVARGAS BUSTOS ~ Antibiotic Timeout Antibiotic Ordered?: Yes Subjective Seen and examined the patient at bedside. Patient continues to be in mild confusion but she is responding to verbal commands and she knows that she is in hospital. She is living in home with family. She looks malnourished and she does not want tube feeding per POLST. She is able to eat the breakfast, pureed and thin liquids today. Contacted the granddaughter, Silva who provided consent for CVVH. Objective Vital Signs Date Time Temp Pulse Resp B/P (MAP) Pulse Ox O2 Delivery O2 Flow Rate FiO2 01/25/25 16:33 87/43 01/25/25 16:00 89 8 90 Room Air 01/25/25 04:00 97.7 01/24/25 20:00 21 01/24/25 03:17 0 Result Diagram: 01/25/25 0953 01/25/25 0245 General: Patient is awake, alert, oriented to person but not the place,time. no acute distress and well appearing. Mildly restricted. Emaciated Head: Normocephalic and atraumatic. Eyes: Conjunctival normal. EOMI. PERRL. ENT: Mucous membranes moist. Neck: Supple, trachea is midline. Chest: Clear to auscultation bilaterally without rales, rhonchi, or wheezes. There is no accessory muscle use or retractions. Cardiac: RRR without murmurs, gallops, or rubs. Neuro: Noted residual right-sided deficits Advance Care Planning Advanced Care plannin - 30 Minutes Assessment Assessment This is a 79-year-old female patient with a past medical history so far known to be atrial fibrillation with RVR presents to the hospital in septic shock as a transfer from [facility] on phed. She was found to have a UTI which was consider the source of an infection but was simultaneously also found to have an unstageable sacral decubitus ulcer which could also be the etiology for the septic shock. Blood cultures positive for Enterobacteriaceae and E coli. However, she tends to have a very high white count and after advocate hydration now of about 6 L IV fluid boluses, her hemoglobin has started drop which is likely her actual hemoglobin level as her skin is quite pale to be at her presentation hemoglobin of 9.2. Nephrology was consulted due to worsening creatinine and no urine output over the last 24-48 hours. Consent for dialysis CVVH taken and she would require long-term care. She is a DNR and the prognosis is poor. Plan Plan Septic shock secondary to UTI BCID- Biofire Blood Culture Identification Panel positive for Enterobacteriaceae, E coli Stage IV decubitus ulcers(10 cm) Acute Metabolic Enchephalopathy 2/2 UTI WBC counts are super elevated, 36.5 Urinalysis positive for nitrate and leukocyte esterase suggestive of UTI Pending culture report Urine tox is negative Procalcitonin is elevated, 2.61. Lactic acid isNormal,1.7 Received 2 L of normal saline in the ER and we did 2 L of lactated Ringer's Received 25% human albumin of 400 mL 1 time and currently on 5% human albumin at the rate of 75 mL/hour. Received 1 dose of ceftriaxone We are continuing lactated ringer at the rate of 125 mL/hour On norepinephrine 0.24 mcg per kg per minutewith a target of MAP >65 On meropenem IV q.12h wound care consult were placed and will appreciate the recommendations c diff is ordered 01/25/2025 White blood cell count are improving We will continue meropenem, human albumin, norepinephrine We will continue to monitor CBC ABG-base excess of "-6.3" even with 150 mEq bicarb replacement Atrial fibrillation with RVR Rate is controlled with 5 mg of diltiazem 1 time dose Patient was on metoprolol 25 mg Toprol-XL but currently not taking it 09/29/2024: Blood pressure still on lower side and we did not start her on any rate control measures Rate controlled Diabetes mellitus A1c is 4.8 Blood glucose is 189 Currently on low-dose Humalog q.6h protocol Continue to monitor blood glucose with a target of 140-180 01/25/2025 Blood glucose is controlled, 170s Normocytic normochromic anemia H& H if 9.2/27.3 We will continue to monitor H& H and will transfuse if hemoglobin is less than 7 01/25/2025 Hemoglobin 6.9 and hematocrit is 20.6 We will continue to monitor H& H We will transfuse 1 LRPC GENE on chronic kidney disease Hyponatremia Hypokalemia Normal anion gap metabolic acidosis Hypomagnesemia -On 01/24/25 Baseline creatinine of 1.4(2019) S .cr-3.22,BUN- 88 Na-130, K- 3.3,Cl-97,co2-18 on LR @125ml/hr ordered renal ultrasound to rule out hydronephrosis Monitor the renal function, urine output and electrolytes consulted Cyber Intelligence Analyst, & will appreciate the recommendations -On 01/25/2025 Serum creatinine is 2.85 Dr. Chavez is on board Secondary to prerenal injury After receiving 6 L IV fluid resuscitation and Levophed, creatinine slightly improved to 2.8. Continues to have no urine output Starting CVVH after Louie placement today. Consent taken Continue bicarb drip, and albumin Close monitoring of BMP Poor prognosis We will place the quintons catheter for SPRINKLER INSPECTOR Replacing the magnesium slowly as Tmax is low to avoid loss of magnesium in urine. Hypertension low bp's 103/43 (map-63) continue to monitor Blood pressure. 01/25/2025: Blood pressures is in 80s to 90s even with norepinephrine Severe Protein Malnutrition Hypoalbuminemia on 5% human albumin @ 75ml/hr continue to monitor cmp A venous ultrasound ruled out DVT -01/25/2025 Serum albumin is improved to 3.3 Patient started on pureed thin liquid diet after clearing swallow test Code status- DNR, no tube feeding per POLST DVT Prophylaxis- heparin subQ GI prophylaxis: Protonix Lines: Left central line, right Louie cath for CVVH prognosis- poor Krish Frey PGY2, Internal medicine resident Date of Service: Jan 25, 2025 Billing Provider: DARRELL STRINGER MD, VENKATESH, RES Jan 25, 2025 16:58
--- NOTE | 2025-01-25 18:11 | PROGRESS NOTE- Residence ---
Progress Note - Resident Providers to CC Resident Creating Document: LEILANI THOMPSON RES ~ Antibiotic Timeout Antibiotic Ordered?: Yes Subjective Seen and examined the patient at bedside. Patient continues to be in mild confusion but she is responding to verbal commands. She is able to eat the breakfast, pureed and thin liquids today Objective Vital Signs Date Time Temp Pulse Resp B/P (MAP) Pulse Ox O2 Delivery O2 Flow Rate FiO2 01/25/25 17:00 89 9 102/45 (64) 97 Nasal Cannula 4.0 01/25/25 04:00 97.7 01/24/25 20:00 21 Result Diagram: 01/25/25 0953 01/25/25 0245 General: Patient is awake, alert, oriented to person but not the place,time. no acute distress and well appearing. Mildly restricted. Emaciated Head: Normocephalic and atraumatic. Eyes: Conjunctival normal. EOMI. PERRL. ENT: Mucous membranes moist. Neck: Supple, trachea is midline. Chest: Clear to auscultation bilaterally without rales, rhonchi, or wheezes. There is no accessory muscle use or retractions. Cardiac: RRR without murmurs, gallops, or rubs. Neuro: Noted residual right-sided deficits Plan Plan This is a 79-year-old female patient with a past medical history so far known to be atrial fibrillation with RVR presents to the hospital in septic shock as a transfer from [facility] on . She was found to have a UTI which was consider the source of an infection but was simultaneously also found to have an unstageable sacral decubitus ulcer which could also be the etiology for the septic shock. Blood cultures positive for Enterobacteriaceae and E coli. However, she tends to have a very high white count and after advocate hydration now of about 6 L IV fluid boluses, her hemoglobin has started drop which is likely her actual hemoglobin level as her skin is quite pale to be at her presentation hemoglobin of 9.2. Nephrology was consulted due to worsening creatinine and no urine output over the last 24-48 hours. Consent for dialysis CVVH taken and she would require long-term care. She is a DNR and the prognosis is poor. Plan Plan Septic shock secondary to UTI BCID- Biofire Blood Culture Identification Panel positive for Enterobacteriaceae, E coli Stage IV decubitus ulcers(10 cm) Acute Metabolic Enchephalopathy 2/2 UTI WBC counts are super elevated, 36.5 Urinalysis positive for nitrate and leukocyte esterase suggestive of UTI Pending culture report Urine tox is negative Procalcitonin is elevated, 2.61. Lactic acid isNormal,1.7 Received 2 L of normal saline in the ER and we did 2 L of lactated Ringer's Received 25% human albumin of 400 mL 1 time and currently on 5% human albumin at the rate of 75 mL/hour. Received 1 dose of ceftriaxone We are continuing lactated ringer at the rate of 125 mL/hour On norepinephrine 0.24 mcg per kg per minutewith a target of MAP >65 On meropenem IV q.12h wound care consult were placed and will appreciate the recommendations c diff is ordered 01/25/2025 White blood cell count are improving We will continue meropenem, human albumin, norepinephrine We will continue to monitor CBC ABG-base excess of "-6.3" even with 150 mEq bicarb replacement Atrial fibrillation with RVR Rate is controlled with 5 mg of diltiazem 1 time dose Patient was on metoprolol 25 mg Toprol-XL but currently not taking it 09/29/2024: Blood pressure still on lower side and we did not start her on any rate control measures Rate controlled Diabetes mellitus A1c is 4.8 Blood glucose is 189 Currently on low-dose Humalog q.6h protocol Continue to monitor blood glucose with a target of 140-180 01/25/2025 Blood glucose is controlled, 170s Normocytic normochromic anemia H& H if 9.2/27.3 We will continue to monitor H& H and will transfuse if hemoglobin is less than 7 01/25/2025 Hemoglobin 6.9 and hematocrit is 20.6 We will continue to monitor H& H We will transfuse 1 LRPC GENE on chronic kidney disease Hyponatremia Hypokalemia Normal anion gap metabolic acidosis Hypomagnesemia -On 01/24/25 Baseline creatinine of 1.4(2019) S .cr-3.22,BUN- 88 Na-130, K- 3.3,Cl-97,co2-18 on LR @125ml/hr ordered renal ultrasound to rule out hydronephrosis Monitor the renal function, urine output and electrolytes consulted Data Entry Supervisor, & will appreciate the recommendations -On 01/25/2025 Serum creatinine is 2.85 Dr. Chavez is on board Secondary to prerenal injury After receiving 6 L IV fluid resuscitation and Levophed, creatinine slightly improved to 2.8. Continues to have no urine output Starting CVVH after Louie placement today. Consent taken Continue bicarb drip, and albumin Close monitoring of BMP Poor prognosis We will place the quintons catheter for EXPEDITION SUPERVISOR Replacing the magnesium slowly as Tmax is low to avoid loss of magnesium in urine. Hypertension low bp's 103/43 (map-63) continue to monitor Blood pressure. 01/25/2025: Blood pressures is in 80s to 90s even with norepinephrine Severe Protein Malnutrition Hypoalbuminemia on 5% human albumin @ 75ml/hr continue to monitor cmp A venous ultrasound ruled out DVT -01/25/2025 Serum albumin is improved to 3.3 Patient started on pureed thin liquid diet after clearing swallow test Code status- DNR, no tube feeding per POLST DVT Prophylaxis- heparin subQ GI prophylaxis: Protonix Lines: Left central line, right Louie cath for CVVH prognosis- poor Leilani Thompson M.D PGY2 Date of Service: Jan 25, 2025 Billing Provider: HILDA RAMIREZ MD Common Visit Codes: [id number] INP/OBS CARE(MOD) LEILANI THOMPSON, RES Jan 25, 2025 18:11 HILDA RAMIREZ MD Jan 26, 2025 15:41
--- NOTE | 2025-01-25 18:33 | PROCEDURE NOTE- Residance ---
Procedure Note Providers to CC ~ Planned Procedure Left IJV Indications Prolonged IV access, norepinephrine drip Post Operative Dx: Septic shock Roller Varnisher Mirlande Reaves Type of Anesthesia Local Informed Consent Obtained from granddaughter- Silva Description A time out was performed. My hands were washed immediately prior to the procedure. I wore a surgical cap, mask with protective eyewear, full gown and sterile gloves throughout the procedure. The patient was placed in Trendelenburg position. Left chest region was prepped using chlorhexidine scrub and draped in sterile fashion using a full drape and sterile probe cover and sterile gel employed. The medial and lateral heads of the sternocleidomastoid muscle were identified as was the carotid pulse. The Internal Jugular vein was identified using the ultrasound. Anesthesia was achieved over the vein using 1% lidocaine. Using real-time out of plane guidance, the introducer needle was inserted into the Internal Jugular vein under direct ultrasound visualization. Venous blood was withdrawn. The syringe was removed and a guidewire was advanced into the introducer needle. The guidewire was visualized in the Internal Jugular Vein by ultrasound. A small incision was made at the skin surface with a scalpel and the introducer needle was exchanged for a dilator over the guidewire. After appropriate dilation was obtained, the dilator was exchanged over the wire for a central venous catheter. The wire was removed and the catheter was sutured in place. A sterile sorbaview shield was placed over the catheter at the insertion site. The patient tolerated the procedure without any hemodynamic compromise. At time of procedure completion, all ports aspirated and flushed properly. Post- procedure chest x-ray is pending at this time. Estimated blood loss is 10 cc. Estimated Blood Loss 10 cc Complication None Date of Service: Jan 25, 2025 Billing Provider: DARRELL STRINGER MD, DEEPANJALI, VARGAS Jan 25, 2025 18:33
--- NOTE | 2025-01-25 18:38 | PROCEDURE NOTE- Residance ---
Procedure Note Providers to CC ~ Planned Procedure Right Louie catheter placement Indications CVVH Post Operative Dx: Septic shock, GENE Fast Food Supervisor Dr Noel Simpson, Dr Mirlande Mendes Type of Anesthesia Local lidocaine Informed Consent Obtained from granddaughter- Silva Description A time out was performed. Prior to beginning the procedure, the prior IJ catheter site was prepped. Sutures were removed. My hands were washed immediately prior to the procedure. I wore a surgical cap, mask with protective eyewear, full gown and sterile gloves throughout the procedure. The patient was placed in Trendelenburg position. She presented with a right IJ catheter. A sterile area was set up, the IJ catheter was exchanged over the guidewire, the dilator was then passed through to further dilate the site. The Louie catheter was then exchanged over the guidewire. The wire was removed and the catheter was sutured in place. A sterile sorbaview shield was placed over the catheter at the insertion site. The patient tolerated the procedure without any hemodynamic compromise. At time of procedure completion, all ports aspirated and flushed properly. Post-procedure chest x-ray is pending at this time. Estimated blood loss is 10cc. Estimated Blood Loss 10-15cc Complication None Date of Service: Jan 25, 2025 Billing Provider: DARRELL STRINGER MD, DEEPANJALI, RES Jan 25, 2025 18:38
[2025-01-25] MEDS: Duosol 4K/3 Ca (w/calcium) 5,000 ML HE SCH (18:50)
--- NOTE | 2025-01-25 19:00 | RADIOLOGY REPORT ---
CHEST RADIOGRAPH Indication: line placement Technique: Single frontal view of the chest was obtained COMPARISON: 01/24/2025 FINDINGS: Right IJ catheter tip projects over the cavoatrial junction. Left IJ catheter tip projects over the proximal SVC The cardiac silhouette is enlarged. The lungs demonstrate bilateral diffuse opacities, new in the int erval. The pulmonary vasculature is prominent. Moderate to large bilateral pleural effusions, signifi cantly increased. There is no pneumothorax. IMPRESSION: As above
[2025-01-25 19:43] LABS: MEAN PLATELET VOLUME 8.6 FL (7.4-10.4); RED CELL DISTRIBUTION WIDTH 16.2 % (11.5-14.5)
[2025-01-25 20:07] LABS: CALCIUM CVVH 6.7 MG/DL (8.5-10.1); CREATININE 2.71 MG/DL (0.40-0.90); PHOSPHORUS 2.5 MG/DL (2.3-4.5); TOTAL CARBON DIOXIDE 23.1 MMOL/L (24-32); eGFR 17 ML/MIN
[2025-01-25 20:26] LABS: LYMPHOCYTES % (MANUAL) 7.0 % (21-51); MONOCYTES % (MANUAL) 4.0 % (2-12); NEUTROPHILS % (MANUAL) 89.0 % (42-75); PLATELET ESTIMATE NORMAL
--- NOTE | 2025-01-25 20:48 | RADIOLOGY REPORT ---
CHEST RADIOGRAPH Indication: jeni placement Technique: Single frontal view of the chest was obtained COMPARISON: DI CHEST,SINGLE VIEW on DOS: 01/25/25, XR CHEST 1 VIEW on DOS: 01/24/25, XR CHEST 1 VIEW on D OS: 01/23/25 FINDINGS: Lines and Tubes: Right and left central venous catheter in satisfactory position overlying the superi or vena cava Lungs: Multifocal airspace disease Pleura: Small bilateral pleural effusions No pneumothorax. Cardiomediastinal contours: Unremarkable Bones: Unremarkable IMPRESSION: Right and left central venous catheter in satisfactory position.
[2025-01-25] MEDS: LIDOcaine 1%/PF 5ML 10 MG/ML VIAL ONE (21:02)
[2025-01-25] MEDS: potassium Cl 40MEQ/270ML bag 270 ML IV PRN (21:46)
[2025-01-25 22:34] LABS: MEAN PLATELET VOLUME 8.7 FL (7.4-10.4); RED CELL DISTRIBUTION WIDTH 16.8 % (11.5-14.5)
[2025-01-25 22:44] LABS: CALCIUM CVVH 7.0 MG/DL (8.5-10.1); CREATININE 2.21 MG/DL (0.40-0.90); PHOSPHORUS 2.5 MG/DL (2.3-4.5); TOTAL CARBON DIOXIDE 25.4 MMOL/L (24-32); eGFR 21 ML/MIN
[2025-01-25] MEDS: JUVEN Shake w/Arg/Glut/Ca2+Bmb (Juven 19.3gm) pkt 240ml PO SCH (22:54)
[2025-01-26] VITALS (25 sets, daily range): BP systolic 98–133; BP diastolic 43–69; PULSE 77–97; RESP 9–21; O2SAT 83–99
[2025-01-26 02:28] LABS: MEAN PLATELET VOLUME 8.3 FL (7.4-10.4); RED CELL DISTRIBUTION WIDTH 16.8 % (11.5-14.5)
[2025-01-26 02:45] LABS: CALCIUM CVVH 7.2 MG/DL (8.5-10.1); CREATININE 1.86 MG/DL (0.40-0.90); PHOSPHORUS 1.9 MG/DL (2.3-4.5); TOTAL CARBON DIOXIDE 26.7 MMOL/L (24-32); eCRCL 20 ML/MIN; eGFR 26 ML/MIN
[2025-01-26 08:30] LABS: MEAN PLATELET VOLUME 8.2 FL (7.4-10.4); RED CELL DISTRIBUTION WIDTH 16.2 % (11.5-14.5)
[2025-01-26 08:36] LABS: CALCIUM CVVH 7.2 MG/DL (8.5-10.1); CREATININE 1.49 MG/DL (0.40-0.90); TOTAL CARBON DIOXIDE 28.8 MMOL/L (24-32); eGFR 34 ML/MIN
[2025-01-26 08:41] LABS: PHOSPHORUS 1.2 MG/DL (2.3-4.5)
[2025-01-26] MEDS: sodium phosphate inj. 30 MMOL in dextrose 5%-water 250 ML IV PRN (08:55)
[2025-01-26 08:57] LABS: BANDS% (MANUAL) 1.0 % (0-10); LYMPHOCYTES % (MANUAL) 3.0 % (21-51); METAMYLEOCYTES% (MANUAL) 1.0 % (0-0); MONOCYTES % (MANUAL) 2.0 % (2-12); MYELOCYTES % (MANUAL) 1.0 % (0-0); NEUTROPHILS % (MANUAL) 92.0 % (42-75); PLATELET ESTIMATE DECREASED
--- NOTE | 2025-01-26 09:57 | RADIOLOGY REPORT ---
CHEST RADIOGRAPH Indication: Possible PNA Technique: Single frontal view of the chest was obtained COMPARISON: DI CHEST,SINGLE VIEW on DOS: 01/25/25, DI CHEST,SINGLE VIEW on DOS: 01/25/25, XR CHEST 1 VIEW on DOS: 01/24/25, XR CHEST 1 VIEW on DOS: 01/23/25 FINDINGS: Lines and Tubes: Right and left central venous catheter in satisfactory position. Lungs: Multifocal airspace disease. Pleura: No effusion. No pneumothorax. Cardiomediastinal contours: Unremarkable Bones: Unremarkable IMPRESSION: No significant interval change.
--- NOTE | 2025-01-26 10:55 | PROGRESS NOTE ---
Subjective Subjective Seen and examined the patient at bedside. Patient continues to be in mild confusion but she is responding to verbal commands. She is able to eat the breakfast, pureed and thin liquids today Reason for visit: Pulmonary critical care follow-up Reviewed: Care Plan, H&P, Labs, Medications, Radiology Review of Systems Changes from previous H/P or p: No Changes Daily Progress Note Exam Vitals Vital Signs Date Time Temp Pulse Resp B/P (MAP) Pulse Ox O2 Delivery O2 Flow Rate FiO2 01/26/25 08:07 82 12 120/53 (75) 98 Nasal Cannula 4.0 01/26/25 05:00 96.1 01/24/25 20:00 21 Result Diagram: 01/26/25 0816 01/26/25 0816 Exam General: Patient is awake, alert, oriented to person but not the place,time. no acute distress and well appearing. Mildly restricted. Emaciated Head: Normocephalic and atraumatic. Eyes: Conjunctival normal. EOMI. PERRL. ENT: Mucous membranes moist. Neck: Supple, trachea is midline. Chest: Clear to auscultation bilaterally without rales, rhonchi, or wheezes. There is no accessory muscle use or retractions. Cardiac: RRR without murmurs, gallops, or rubs. Neuro: Noted residual right-sided deficits VTE VTE Risk Score VTE Risk Score Reference Ranges: Score 0-1 = Low Risk (Aggressive mobilization; early ambulation; no VTE prophylaxis required) Score 2: Moderate Risk (Intermittent/Pneumatic Compression Device OR Lovenox/Heparin/Coumadin) Score 3-4: High Risk (Intermittent/Pneumatic Compression Device AND Lovenox/Heparin/Coumadin) Score > or = 5: Highest Risk (Intermittent/Pneumatic Compression Device AND Lovenox/Heparin/Coumadin) Assessment/Plan Plan This is a 79-year-old female patient with a past medical history so far known to be atrial fibrillation with RVR presents to the hospital in septic shock as a transfer from [facility] on ph. She was found to have a UTI which was consider the source of an infection but was simultaneously also found to have an unstageable sacral decubitus ulcer which could also be the etiology for the septic shock. Blood cultures positive for Enterobacteriaceae and E coli. However, she tends to have a very high white count and after advocate hydration now of about 6 L IV fluid boluses, her hemoglobin has started drop which is likely her actual hemoglobin level as her skin is quite pale to be at her presentation hemoglobin of 9.2. Nephrology was consulted due to worsening creatinine and no urine output over the last 24-48 hours. Consent for dialysis CVVH taken and she would require long-term care. She is a DNR and the prognosis is poor. Impression Acute hypoxemic respiratory failure: Pulse oximeter reading was 86% on room air. Now on 2 L nasal cannula with a pulse oximeter reading of 95%. Pulmonary edema: Evident on today's chest x-ray. Hopefully will resolve with CRRT. Follow echocardiogram results. Septic shock secondary to UTI: Norepinephrine 0.24 mcg/kg per minute BCID- Biofire Blood Culture Identification Panel positive for Enterobacteriaceae, E coli Stage IV decubitus ulcers(10 cm): We will benefit from diversion colostomy to facilitate healing. Patient does not want to have a diversion colostomy. Acute Metabolic Enchephalopathy 2/2 UTI Leukemoid reaction GENE: Now on CRRT Nutrition: Severely malnourished looking. Poor oral intake Large Stage IV decubitus ulcer: Wound care has been consulted. Atrial fibrillation with RVR Diabetes mellitus Normocytic, normochromic anemia: Most likely of chronic disease. Plan: Continue CRRT as per nephrology service. Continue antibiotic therapy with meropenem. Wound care as per Wound Care Service. Adjust insulin to maintain a serum glucose level of 140-180 mg/dL. Need to discuss with family about goals of therapy. Code status- DNR, no tube feeding per POLST DVT Prophylaxis- heparin subQ GI prophylaxis: Protonix Lines: Left central line, right Louie cath for CVVH prognosis- poor Expected Outcome/Goals Expected Outcomes/Goals: maintain stable wt, meet at least 75% estimated nutrient needs, ONS acceptance, bowel regularity, wound healing, Glu 80-180 mg/dL DARRELL STRINGER MD Jan 26, 2025 10:55
--- NOTE | 2025-01-26 11:20 | PROGRESS NOTE ---
Progress Note Dictate Providers to CC ~ Central Line/PICC still needed: Yes Central Line/PICC Necessity: Req HD/Plasmapheresis Hernandez Indications Met/Not Met: F/C Indications Met Antibiotic Ordered?: Yes Subjective Subjective critically ill. has pulmonary vascular congestion. remaining in icu. on CVVH. we are aiming for up to 50 cc negative fluid balance per hour if tolerated. Objective Vitals Vital Signs Date Time Temp Pulse Resp B/P (MAP) Pulse Ox O2 Delivery O2 Flow Rate FiO2 01/26/25 15:06 111/69 01/26/25 15:00 79 15 97 Nasal Cannula 2.0 01/26/25 14:00 96.8 01/24/25 20:00 21 Lab Results: 01/26/25 1350 01/26/25 1350 Objective Vital Signs: As above General: Normal body habitus, no acute distress. Skin: No rashes, lumps, ulcers, blisters, purpura or petechiae HEENT: Anicteric sclera, JOSE Neck: Supple and nontender without enlargement of the thyroid, or lymphadenopathy. Chest: Normal size and shape, no tenderness, CTA bilaterally Heart: Regular. No jugular venous distention, S1 and S2 heard , no gallop Abdomen: Soft and non tender no organomegaly,BS+ Extremities: No pedal edema Neuro: Nonfocal. Advance Care Planning Advanced Care plannin - 30 Minutes Problem\Assessment\Plan Problems/Diagnosis: (1) Acute respiratory failure Assessment & Plan: slightly better than yesterday. has significant pulmonary vascular congestion. (2) GENE (acute kidney injury) Assessment & Plan: with septic shock. on cvvh tolerating well so far. (3) Sepsis Assessment & Plan: on antibiotics. (4) Decubitus ulcer Assessment & Plan: getting wound care. APS alerted. Additional Plan 30 minutes to coordinate care on this critically ill woman in the icu and facilitating the cVVH. Sepsis Screening Skin Color: Pale DEVON DEGROOT MD Jan 26, 2025 11:20
[2025-01-26 13:09] LABS: C DIFF ANTIGEN NEGATIVE (NEGATIVE); C DIFF SPECIMEN=DIARRHEA? ACCEPTABLE; C DIFFICILE TOXINS A&B NEGATIVE (Neg)
[2025-01-26] MEDS ORDERED: UNABLE TO OBTAIN (13:38)
--- NOTE | 2025-01-26 13:58 | PROGRESS NOTE- Residence ---
Progress Note - Resident Providers to CC Resident Creating Document: SOLEDAD FISHER RES ~ Antibiotic Timeout Antibiotic Ordered?: Yes MRSA Education MRSA Education Provided to pt: Yes Subjective Seen and examined the patient at bedside. She remains mildly confused but is responsive to verbal commands. Able to tolerate oral intake. She has a undergoing CRRT, Nephrology on board. Objective Vital Signs Date Time Temp Pulse Resp B/P (MAP) Pulse Ox O2 Delivery O2 Flow Rate FiO2 01/26/25 13:14 116/54 01/26/25 13:00 83 14 94 Nasal Cannula 2.0 01/26/25 10:00 96.8 01/24/25 20:00 21 General: Patient is awake, alert, oriented to person but not the place,time. no acute distress and well appearing. Mildly restricted. Emaciated Head: Normocephalic and atraumatic. Eyes: Conjunctival normal. EOMI. PERRL. ENT: Mucous membranes moist. Neck: Supple, trachea is midline. Chest: Clear to auscultation bilaterally without rales, rhonchi, or wheezes. There is no accessory muscle use or retractions. Cardiac: RRR without murmurs, gallops, or rubs. Neuro: Noted residual right-sided deficits Result Diagram: 01/26/25 0816 01/26/25 0816 Advance Care Planning Advanced Care plannin - 30 Minutes Plan Plan Acute hypoxemic respiratory failure Septic shock secondary to UTI BCID- Biofire Blood Culture Identification Panel positive for Enterobacteriaceae, E coli Stage IV decubitus ulcers(10 cm) Acute Metabolic Enchephalopathy 2/2 UTI Marked leukocytosis; WBC trended down; 27.8 today UA suggestive of UTI - urine culture grew Gram-positive cocci and Gram-negative rods Received 2 L of normal saline in the ER and we did 2 L of lactated Ringer's On pressors; Levophed 0.1 mcg/kg per minute Receiving albumin 75 mL/hour Continue meropenem C diff is negative, HBS antigen pending 01/25/2025 White blood cell count are improving We will continue meropenem, human albumin, norepinephrine We will continue to monitor CBC ABG-base excess of "-6.3" even with 150 mEq bicarb replacement January 26, 2025 Marked leukocytosis, WBC trending down; 27 0.8 today Managed per mule spinner; meropenem, albumin, norepinephrine continued Undergoing CRRT; managed per Nephrology Atrial fibrillation with RVR Rate is controlled with 5 mg of diltiazem 1 time dose Patient was on metoprolol 25 mg Toprol-XL but currently not taking it Diabetes mellitus A1c is 4.8 Currently on low-dose Humalog q.6h protocol Continue to monitor blood glucose with a target of 140-180 Normocytic normochromic anemia H& H if 9.2/27.3 We will continue to monitor H& H and will transfuse if hemoglobin is less than 7 GENE on chronic kidney disease Hyponatremia Hypokalemia Normal anion gap metabolic acidosis Hypomagnesemia Managed per Nephrology Hypertension Hemodynamically unstable On norepinephrine infusion Severe Protein Malnutrition Hypoalbuminemia on 5% human albumin @ 75ml/hr Code status- DNR, no tube feeding per POLST DVT Prophylaxis- heparin subQ GI prophylaxis: Protonix Lines: Left central line, right Louie cath for CVVH prognosis- poor Date of Service: Jan 26, 2025 Billing Provider: HILDA RAMIREZ MD Common Visit Codes: [id number] INP/OBS CARE(MOD) SOLEDAD FISHER, RES Jan 26, 2025 13:58 HILDA RAMIREZ MD Jan 26, 2025 15:41
[2025-01-26 14:16] LABS: MEAN PLATELET VOLUME 8.4 FL (7.4-10.4); RED CELL DISTRIBUTION WIDTH 16.2 % (11.5-14.5)
[2025-01-26 14:31] LABS: CALCIUM CVVH 7.7 MG/DL (8.5-10.1); CREATININE 1.23 MG/DL (0.40-0.90); TOTAL CARBON DIOXIDE 28.6 MMOL/L (24-32); eGFR 42 ML/MIN
[2025-01-26 14:39] LABS: PHOSPHORUS 1.1 MG/DL (2.3-4.5)
[2025-01-26 20:44] LABS: MEAN PLATELET VOLUME 8.5 FL (7.4-10.4); RED CELL DISTRIBUTION WIDTH 16.0 % (11.5-14.5)
[2025-01-26 20:51] LABS: CALCIUM CVVH 7.7 MG/DL (8.5-10.1); CREATININE 1.09 MG/DL (0.40-0.90); PHOSPHORUS 3.1 MG/DL (2.3-4.5); TOTAL CARBON DIOXIDE 27.4 MMOL/L (24-32); eGFR 48 ML/MIN
[2025-01-26] MEDS: HYDROmorphone inj. 0.5 MG/0.5 ML DISP.SYRIN IV PRN (21:00)
[2025-01-27] VITALS (25 sets, daily range): BP systolic 93–131; BP diastolic 41–57; PULSE 69–126; RESP 10–19; O2SAT 91–99
[2025-01-27 03:05] LABS: MEAN PLATELET VOLUME 8.6 FL (7.4-10.4); RED CELL DISTRIBUTION WIDTH 16.2 % (11.5-14.5)
[2025-01-27 03:10] LABS: CALCIUM CVVH 7.7 MG/DL (8.5-10.1); CREATININE 0.86 MG/DL (0.40-0.90); PHOSPHORUS 2.2 MG/DL (2.3-4.5); TOTAL CARBON DIOXIDE 28.0 MMOL/L (24-32); eCRCL 44 ML/MIN; eGFR 64 ML/MIN
[2025-01-27] MEDS: SODIUM PHOSPHATE IN D5W 250 ML IV ONE (04:22)
[2025-01-27] MEDS: amiodarone 150mg/dext, iso-os 100 ML IV ONE (07:19)
[2025-01-27] MEDS: amiodarone/D5 360MG/200ML BAG 200 ML IV SCH (07:41)
[2025-01-27 10:13] LABS: CALCIUM CVVH 7.9 MG/DL (8.5-10.1); CREATININE 0.79 MG/DL (0.40-0.90); MEAN PLATELET VOLUME 8.5 FL (7.4-10.4); PHOSPHORUS 3.5 MG/DL (2.3-4.5); RED CELL DISTRIBUTION WIDTH 16.4 % (11.5-14.5); TOTAL CARBON DIOXIDE 26.6 MMOL/L (24-32); eGFR 70 ML/MIN
[2025-01-27 10:48] LABS: PLATELET ESTIMATE DECREASED
--- NOTE | 2025-01-27 12:02 | PROGRESS NOTE ---
Subjective Subjective Seen and examined the patient at bedside. She remains mildly confused but is responsive to verbal commands. Able to tolerate oral intake. She has a undergoing CRRT, Nephrology on board. Reason for visit: Pulmonary critical care follow-up Reviewed: Care Plan, H&P, Labs, Medications, Radiology Daily Progress Note Exam Vitals Vital Signs Date Time Temp Pulse Resp B/P (MAP) Pulse Ox O2 Delivery O2 Flow Rate FiO2 01/27/25 11:11 18 01/27/25 11:00 78 117/45 (69) 95 Room Air 01/27/25 07:00 97.5 01/26/25 22:00 2.0 01/24/25 20:00 21 Result Diagram: 01/27/25 0938 01/27/25 0938 Exam General: Patient is awake, alert, oriented to person but not the place,time. no acute distress and well appearing. Mildly restricted. Emaciated Head: Normocephalic and atraumatic. Eyes: Conjunctival normal. EOMI. PERRL. ENT: Mucous membranes moist. Neck: Supple, trachea is midline. Chest: Clear to auscultation bilaterally without rales, rhonchi, or wheezes. There is no accessory muscle use or retractions. Cardiac: RRR without murmurs, gallops, or rubs. Neuro: Noted residual right-sided deficits VTE VTE Risk Score VTE Risk Score Reference Ranges: Score 0-1 = Low Risk (Aggressive mobilization; early ambulation; no VTE prophylaxis required) Score 2: Moderate Risk (Intermittent/Pneumatic Compression Device OR Lovenox/Heparin/Coumadin) Score 3-4: High Risk (Intermittent/Pneumatic Compression Device AND Lovenox/Heparin/Coumadin) Score > or = 5: Highest Risk (Intermittent/Pneumatic Compression Device AND Lovenox/Heparin/Coumadin) Assessment/Plan Plan Acute hypoxemic respiratory failure: Patient on supplemental oxygen and chest x-ray showing pulmonary edema. Pulmonary edema: Evident on chest x-ray 01/26/2025. Hopefully will resolve with CRRT. Follow echocardiogram results. Septic shock secondary to UTI: Still on norepinephrine drip but has been titrated down to low-dose. BCID- Biofire Blood Culture Identification Panel positive for Enterobacteriaceae, E coli Stage IV decubitus ulcers(10 cm): We will benefit from diversion colostomy to facilitate healing. Patient does not want to have a diversion colostomy. Acute Metabolic Enchephalopathy 2/2 UTI Leukemoid reaction: Resolving with antibiotic therapy. Most likely due to sepsis. GENE: Now on CRRT Nutrition: Severely malnourished looking. Poor oral intake Large Stage IV decubitus ulcer: Wound care has been consulted. Atrial fibrillation with RVR Diabetes mellitus Normocytic, normochromic anemia: Most likely of chronic disease. Plan: Continue CRRT as per nephrology service. Continue antibiotic therapy with meropenem. Wound care as per Wound Care Service. Adjust insulin to maintain a serum glucose level of 140-180 mg/dL. Need to discuss with family about goals of therapy. They did not show up yesterday his pharmacy. Code status- DNR, no tube feeding per POLST DVT Prophylaxis- heparin subQ GI prophylaxis: Protonix Lines: Left central line, right Louie cath for CVVH prognosis- poor Overall prognosis: Guarded Critical care 35 minutes. Expected Outcome/Goals Expected Outcomes/Goals: maintain stable wt, meet at least 75% estimated nutrient needs, ONS acceptance, bowel regularity, wound healing, Glu 80-180 mg/dL DARRELL STRINGER MD Jan 27, 2025 12:02
--- NOTE | 2025-01-27 12:30 | PROGRESS NOTE- Residence ---
Progress Note - Resident Providers to CC Resident Creating Document: LEILANI THOMPSON RES ~ Antibiotic Timeout Antibiotic Ordered?: Yes Subjective Seen and examined the patient at bedside. She has a undergoing CRRT, Nephrology on board. Objective Vital Signs Date Time Temp Pulse Resp B/P (MAP) Pulse Ox O2 Delivery O2 Flow Rate FiO2 01/27/25 12:00 97.3 71 12 109/46 (67) 94 Nasal Cannula 1.0 01/24/25 20:00 21 Result Diagram: 01/27/25 0938 01/27/25 0938 General: Patient is awake, alert, oriented to person but not the place,time. no acute distress and well appearing. Mildly restricted. Emaciated Head: Normocephalic and atraumatic. Eyes: Conjunctival normal. EOMI. PERRL. ENT: Mucous membranes moist. Neck: Supple, trachea is midline. Chest: Clear to auscultation bilaterally without rales, rhonchi, or wheezes. There is no accessory muscle use or retractions. Cardiac: RRR without murmurs, gallops, or rubs. Neuro: Noted residual right-sided deficits Plan Plan Acute hypoxemic respiratory failure Septic shock secondary to UTI BCID- Biofire Blood Culture Identification Panel positive for Enterobacteriaceae, E coli Stage IV decubitus ulcers(10 cm) Acute Metabolic Enchephalopathy 2/2 UTI Marked leukocytosis; WBC trended down; 27.8 today UA suggestive of UTI - urine culture grew Gram-positive cocci and Gram-negative rods Received 2 L of normal saline in the ER and we did 2 L of lactated Ringer's On pressors; Levophed 0.1 mcg/kg per minute Receiving albumin 75 mL/hour Continue meropenem C diff is negative, HBS antigen pending 01/25/2025 White blood cell count are improving We will continue meropenem, human albumin, norepinephrine We will continue to monitor CBC ABG-base excess of "-6.3" even with 150 mEq bicarb replacement January 26, 2025 Marked leukocytosis, WBC trending down; 27 0.8 today Managed per yard pipe grader; meropenem, albumin, norepinephrine continued Undergoing CRRT; managed per Nephrology 01/27/2025 Leukocytosis improving Meropenem day four Continued Levophed drip. Atrial fibrillation with RVR Rate is controlled with 5 mg of diltiazem 1 time dose Patient was on metoprolol 25 mg Toprol-XL but currently not taking it Currently on amiodarone drip Diabetes mellitus A1c is 4.8 Currently on low-dose Humalog q.6h protocol Continue to monitor blood glucose with a target of 140-180 Normocytic normochromic anemia H& H if 9.2/27.3 We will continue to monitor H& H and will transfuse if hemoglobin is less than 7 GENE on chronic kidney disease Hyponatremia Hypokalemia Normal anion gap metabolic acidosis Hypomagnesemia Currently on CVVH Managed has been Nephrology. Hypertension Hemodynamically unstable On norepinephrine infusion Severe Protein Malnutrition Hypoalbuminemia on 5% human albumin @ 75ml/hr Code status- DNR, no tube feeding per POLST DVT Prophylaxis- heparin subQ GI prophylaxis: Protonix Lines: Left central line, right Louie cath for CVVH prognosis- poor Leilani Thompson m.D PGY2 Date of Service: Jan 27, 2025 Billing Provider: HILDA RAMIREZ MD Common Visit Codes: [id number] INP/OBS CARE(LOW) LEILANI THOMPSON, RES Jan 27, 2025 12:30 HILDA RAMIREZ MD Jan 27, 2025 15:17
[2025-01-27] MEDS ORDERED: HYDROmorphone inj. 0.5 MG/0.5 ML DISP.SYRIN IV PRN (12:40)
[2025-01-27] MEDS: NUT.TX.IMP.RENAL FXN,LAC-REDUC (Nepro) 237 ML VANILLA PO SCH (13:00)
[2025-01-27 14:29] LABS: MEAN PLATELET VOLUME 8.4 FL (7.4-10.4); RED CELL DISTRIBUTION WIDTH 16.2 % (11.5-14.5)
[2025-01-27 14:39] LABS: CALCIUM CVVH 8.0 MG/DL (8.5-10.1); CREATININE 0.66 MG/DL (0.40-0.90); TOTAL CARBON DIOXIDE 27.5 MMOL/L (24-32); eGFR 86 ML/MIN
[2025-01-27 14:41] LABS: PHOSPHORUS 2.6 MG/DL (2.3-4.5)
--- NOTE | 2025-01-27 17:13 | PROGRESS NOTE ---
Progress Note Dictate Providers to CC ~ Central Line/PICC still needed: Yes Central Line/PICC Necessity: Req HD/Plasmapheresis Hernandez Indications Met/Not Met: F/C Indications Met Antibiotic Ordered?: Yes Subjective Subjective undergoing CVVH. 1 liter negative balance. coming down on the pressors simultaneously. Objective Vitals Vital Signs Date Time Temp Pulse Resp B/P (MAP) Pulse Ox O2 Delivery O2 Flow Rate FiO2 01/27/25 16:00 97.3 74 14 117/45 (69) 95 Nasal Cannula 1.0 01/24/25 20:00 21 Lab Results: 01/27/25 1417 01/27/25 1417 Objective Vital Signs: As above General: Normal body habitus, no acute distress. Skin: No rashes, lumps, ulcers, blisters, purpura or petechiae HEENT: Anicteric sclera, JOSE Neck: Supple and nontender without enlargement of the thyroid, or lymphadenopathy. Chest: Normal size and shape, no tenderness, CTA bilaterally Heart: Regular. No jugular venous distention, S1 and S2 heard , no gallop Abdomen: Soft and non tender no organomegaly,BS+ Extremities: No pedal edema Neuro: Nonfocal. Advance Care Planning Advanced Care plannin - 30 Minutes Problem\Assessment\Plan Problems/Diagnosis: (1) Acute respiratory failure Assessment & Plan: slightly better than yesterday. has significant pulmonary vascular congestion. (2) GENE (acute kidney injury) Assessment & Plan: with septic shock. on cvvh tolerating well so far. (3) Sepsis Assessment & Plan: on antibiotics. (4) Decubitus ulcer Assessment & Plan: getting wound care. APS alerted. Sepsis Screening Skin Color: Pale DEVON DEGROOT MD Jan 27, 2025 17:12
[2025-01-27 20:45] LABS: MEAN PLATELET VOLUME 8.5 FL (7.4-10.4); RED CELL DISTRIBUTION WIDTH 15.9 % (11.5-14.5)
[2025-01-27 20:52] LABS: CALCIUM CVVH 8.1 MG/DL (8.5-10.1); CREATININE 0.61 MG/DL (0.40-0.90); PHOSPHORUS 2.1 MG/DL (2.3-4.5); TOTAL CARBON DIOXIDE 27.8 MMOL/L (24-32); eGFR > 90 ML/MIN
[2025-01-28] VITALS (13 sets, daily range): BP systolic 80–135; BP diastolic 37–61; PULSE 63–99; RESP 12–24; TEMP 97.4; O2SAT 81–94
[2025-01-28 02:31] LABS: MEAN PLATELET VOLUME 8.9 FL (7.4-10.4); RED CELL DISTRIBUTION WIDTH 16.3 % (11.5-14.5)
[2025-01-28 02:46] LABS: CALCIUM CVVH 8.3 MG/DL (8.5-10.1); CREATININE 0.61 MG/DL (0.40-0.90); TOTAL CARBON DIOXIDE 26.7 MMOL/L (24-32); eCRCL 62 ML/MIN; eGFR > 90 ML/MIN
[2025-01-28 02:55] LABS: PHOSPHORUS 3.0 MG/DL (2.3-4.5)
[2025-01-28 08:49] LABS: MEAN PLATELET VOLUME 8.2 FL (7.4-10.4)
[2025-01-28 08:51] LABS: RED CELL DISTRIBUTION WIDTH 16.2 % (11.5-14.5)
[2025-01-28 09:01] LABS: CREATININE 0.62 MG/DL (0.40-0.90); TOTAL CARBON DIOXIDE 27.8 MMOL/L (24-32); eCRCL 61 ML/MIN; eGFR > 90 ML/MIN
[2025-01-28 09:02] LABS: PHOSPHORUS 2.4 MG/DL (2.3-4.5)
--- NOTE | 2025-01-28 09:58 | CARDIOLOGY REPORT ---
APPROVED REPORT EXAM: Comprehensive 2D, Doppler, and color-flow Echocardiogram. Patient Location: 2008 Blood Pressure: 104/43 mmHg Heart Rate: 113 bpm Rhythm: Tachycardia Indications Congestive Heart Failure Levophed: 0.24 mcg/kg/min Atrial Fibrillation Stroke Hypotension Hypertension Diabetes NO INBOUND SALES REPRESENTATIVE Previous ECHO: 05/01/19, [facility], EF: 60-65; [facility] 2D Dimensions [place] Diam3.8 cm IVSd 0.9 (0.7-1.1cm) LVDd 2.9 cm PWd 0.9 (0.7-1.1cm) IVSs 1.1 (0.8-1.2cm) LVDs 2.0 (2.5-4.0cm) PWs 1.0 (0.8-1.2cm) LVOT Diameter 1.82 (1.8-2.4cm) LVEF(%) 58.9 (>50%) IVC 19.35 mm FS (%) 30.0 % SV 18.8 ml CO 2.2 L/min Aortic Valve AoV Peak Rajinder. 177.3 cm/s AoV VTI 24.2 cm AO Peak GR. 12.6 mmHg AO Mean GR. 6 mmHg LVOT VTI 18.97 cm LVOT Peak Rajinder. 100.4 cm/s JONATAN(VTI)/BSA 2.04 cm2/m2 JONATAN (VTI) 2.04 cm2 Tricuspid Valve TR P. Velocity 259 cm/s RAP ESTIMATE 10 mmHg TR Peak Gr. 27 mmHg RVSP 37 mmHg LEFT VENTRICLE Normal LV size and wall thickness. Overall systolic function is normal. Overall LVEF is 60% with admi nistration of Levophed at 0.24 mcg/kg/min. RIGHT VENTRICLE RV is normal size and function. PA systolic pressure of 37 mm of mercury. ATRIA The left atrium size is normal. AORTIC VALVE Aortic valve is probably trileaflet with mild sclerosis. MITRAL VALVE Mild mitral annular calcification without stenosis. Trace regurgitation. TRICUSPID VALVE The tricuspid valve is normal in structure with mild regurgitation. PULMONIC VALVE Pulmonic valve is not well visualized. GREAT VESSELS Aortic root is grossly normal in size. IVC is normal in size. PERICARDIUM Normal pericardium. No effusion. Anterior epicardial fat pad is present. Other Information Study Quality: Poor due to body habitus and supine position Conclusion Overall LVEF is 60% with administration of Levophed at 0.24 mcg/kg/min. Normal LV size and wall thickness. Overall systolic function is normal. RV is normal size and function. PA systolic pressure of 37 mm of mercury. Aortic valve is probably trileaflet with mild sclerosis. Mild mitral annular calcification without stenosis. Trace regurgitation. The tricuspid valve is normal in structure with mild regurgitation. Normal pericardium. No effusion. Anterior epicardial fat pad is present.
--- NOTE | 2025-01-28 10:21 | PROGRESS NOTE ---
Progress Note Dictate Providers to CC ~ Central Line/PICC still needed: Yes Central Line/PICC Necessity: Req HD/Plasmapheresis Hernandez Indications Met/Not Met: F/C Indications Met Antibiotic Ordered?: Yes Subjective Subjective the patient is on antibiotics for the pyelonephritis, and septic shock is getting better. CVVH progressing well with good negative fluid balance. however, family decided for comfort care. we are going to stop the CVVH. i shall sign off at this poitn. Objective Vitals Vital Signs Date Time Temp Pulse Resp B/P (MAP) Pulse Ox O2 Delivery O2 Flow Rate FiO2 01/28/25 11:00 90 24 107/58 (74) 94 Nasal Cannula 2.0 01/28/25 09:00 97.2 01/24/25 20:00 21 Lab Results: 01/28/25 0840 01/28/25 0840 Objective Vital Signs: As above General: Normal body habitus, no acute distress. Skin: No rashes, lumps, ulcers, blisters, purpura or petechiae HEENT: Anicteric sclera, JOSE Neck: Supple and nontender without enlargement of the thyroid, or lymphadenopathy. Chest: Normal size and shape, no tenderness, CTA bilaterally Heart: Regular. No jugular venous distention, S1 and S2 heard , no gallop Abdomen: Soft and non tender no organomegaly,BS+ Extremities: No pedal edema Neuro: Nonfocal. Advance Care Planning Advanced Care plannin - 30 Minutes Problem\Assessment\Plan Problems/Diagnosis: (1) Acute respiratory failure Assessment & Plan: stop CVVH. she is going on comfort care. will sign off. (2) GENE (acute kidney injury) Assessment & Plan: with septic shock. on cvvh tolerating well so far. (3) Sepsis Assessment & Plan: on antibiotics. (4) Decubitus ulcer Assessment & Plan: getting wound care. APS alerted. Sepsis Screening Skin Color: Pale DEVON DEGROOT MD Jan 28, 2025 10:21
--- NOTE | 2025-01-28 12:02 | PROGRESS NOTE ---
Subjective Subjective Seen and examined the patient at bedside. She is undergoing CRRT per Nephrology orders. He is awake alert, interactive and in no apparent distress. She is on supplemental oxygen via nasal cannula. Pulse oximeter reading is 96%. Reason for visit: Pulmonary critical care follow-up Reviewed: Care Plan, H&P, Labs, Medications, Radiology Daily Progress Note Exam Vitals Vital Signs Date Time Temp Pulse Resp B/P (MAP) Pulse Ox O2 Delivery O2 Flow Rate FiO2 01/28/25 11:00 90 24 107/58 (74) 94 Nasal Cannula 2.0 01/28/25 09:00 97.2 01/24/25 20:00 21 Result Diagram: 01/28/25 0840 01/28/25 0840 Exam General: Patient is awake, alert, oriented to person but not the place,time. no acute distress and well appearing. Mildly restricted. Emaciated Head: Normocephalic and atraumatic. Eyes: Conjunctival normal. EOMI. PERRL. ENT: Mucous membranes moist. Neck: Supple, trachea is midline. Chest: Clear to auscultation bilaterally without rales, rhonchi, or wheezes. There is no accessory muscle use or retractions. Cardiac: RRR without murmurs, gallops, or rubs. Neuro: Noted residual right-sided deficits VTE VTE Risk Score VTE Risk Score Reference Ranges: Score 0-1 = Low Risk (Aggressive mobilization; early ambulation; no VTE prophylaxis required) Score 2: Moderate Risk (Intermittent/Pneumatic Compression Device OR Lovenox/Heparin/Coumadin) Score 3-4: High Risk (Intermittent/Pneumatic Compression Device AND Lovenox/Heparin/Coumadin) Score > or = 5: Highest Risk (Intermittent/Pneumatic Compression Device AND Lovenox/Heparin/Coumadin) Assessment/Plan Plan Acute hypoxemic respiratory failure:Patient on supplemental oxygen and chest x- ray showing pulmonary edema. Pulmonary edema: Evident on chest x-ray 01/26/2025. Hopefully will resolve with CRRT. Follow echocardiogram results. Septic shock secondary to UTI: Off norepinephrine drip. On 5% albumin drip at 75 mL/hour. BCID- [facility] Blood Culture Identification Panel positive for Enterobacteriaceae, E coli Stage IV decubitus ulcers(10 cm): We will benefit from diversion colostomy to facilitate healing. Patient does not want to have a diversion colostomy. Acute Metabolic Enchephalopathy 2/2 UTI Leukemoid reaction: Resolved and most likely due to sepsis. GENE: Now on CRRT Nutrition: Severely malnourished looking. Poor oral intake and refusing to take p.o. diet. Large Stage IV decubitus ulcer: Wound care has been consulted. We will benefit from a diversion colostomy. Atrial fibrillation with RVR Diabetes mellitus Normocytic, normochromic anemia: Most likely of chronic disease. Plan: Continue CRRT as per nephrology service. Continue antibiotic therapy with meropenem. Wound care as per Wound Care Service. Adjust insulin to maintain a serum glucose level of 140-180 mg/dL. Need to discuss with family about goals of therapy. They did not show up yesterday his pharmacy. Code status- DNR, no tube feeding per POLST DVT Prophylaxis- heparin subQ GI prophylaxis: Protonix Lines: Left central line, right Louie cath for CVVH prognosis- poor Social: I talked to the patient's son Mr. Po Murray and the patient's niece Mrs Silva Cha. I talked with them both on the same telephone conversation today. They report a very poor quality of life with the patient and that she has been bed-bound. The patient's weakened and refusing to eat with a large decubitus ulcer that will require high-energy stores as well as a diversion colostomy to facilitate healing. I and the two above-mentioned agreed that it would be in the patient's best interest to transition to hospice/comfort care. Orders were written and the patient is now DNR comfort care/hospice. Overall prognosis: Guarded Critical care 35 minutes. Expected Outcome/Goals Expected Outcomes/Goals: maintain stable wt, meet at least 75% estimated nutrient needs, ONS acceptance, bowel regularity, wound healing, Glu 80-180 mg/dL DARRELL STRINGER MD Jan 28, 2025 12:02
[2025-01-28] MEDS: morphine 10mg/ml inj. IV PRN (13:50)
--- NOTE | 2025-01-28 18:24 | PROGRESS NOTE- Residence ---
Progress Note - Resident Providers to CC Resident Creating Document: LEILANI MILLS RES ~ Antibiotic Timeout Antibiotic Ordered?: No Subjective Seen and examined the patient at bedside. Family decided for comfort care, CVVH we will be stopped. Objective Vital Signs Date Time Temp Pulse Resp B/P (MAP) Pulse Ox O2 Delivery O2 Flow Rate FiO2 01/28/25 14:50 9 01/28/25 11:00 90 107/58 (74) 94 Nasal Cannula 2.0 01/28/25 09:00 97.2 01/24/25 20:00 21 Result Diagram: 01/28/25 0840 01/28/25 0840 General: Patient is awake, alert, oriented to person but not the place,time. no acute distress and well appearing. Mildly restricted. Emaciated Head: Normocephalic and atraumatic. Eyes: Conjunctival normal. EOMI. PERRL. ENT: Mucous membranes moist. Neck: Supple, trachea is midline. Chest: Clear to auscultation bilaterally without rales, rhonchi, or wheezes. There is no accessory muscle use or retractions. Cardiac: RRR without murmurs, gallops, or rubs. Neuro: Noted residual right-sided deficits Plan Plan Assessment This is a 79-year-old female with past medical history of stroke with a residual right-sided deficit, atrial fibrillation, large decubitus ulcer on sacrum, CKD was transferred from [place] [facility] where she presented for altered mental status, 4-5 days of vomiting and diarrhea. Workup with the facility showed sepsis with UTI. Was on vasopressors at the time of transfer. [facility] blood cultures panel showed positive for Enterobacter H and E coli. Urine cultures grew Enterobacter faecalis, E coli she was on meropenem. Continued Levophed drip. She was started on CVVH for GENE, metabolic acidosis, hypokalemia. Was on amiodarone drip for atrial fibrillation. Was also on albumin. Dr. Barney spoke today to the patient's son Mr. Chidi mir in his niece, the reported a very poor quality of life in the patient being bed-bound. After discussion with the patient's family they wanted her to be transition to comfort care. Plan Septic shock secondary to UTI Positive blood and urine cultures Stage IV decubitus ulcer Metabolic encephalopathy GENE AFib with rapid ventricular rate Comfort care measures -morphine Ativan p.r.n. Code status: DNR with comfort care Leilani Mills M.D PGY2 Date of Service: Jan 28, 2025 Billing Provider: HILDA RAMIREZ MD,LEILANI, RES Jan 28, 2025 18:23
[2025-01-29 08:00] VITALS: BP 100/36; PULSE 91; RESP 5; TEMP 96.1; O2SAT 88
--- NOTE | 2025-01-29 08:46 | RADIOLOGY REPORT ---
CHEST RADIOGRAPH Indication: oligoanuria assess for fluid overload Technique: Single frontal view of the chest was obtained Comparison: XR CHEST 1 VIEW on DOS: 01/24/25 FINDINGS: Lines and Tubes: There is a right central venous catheter with the tip terminating in the superior ca voatrial junction. Lungs: Bilateral airspace disease. Pleura: Bilateral pleural effusions. No pneumothorax. Cardiomediastinal contours: Unremarkable Bones: No acute osseous abnormality. IMPRESSION: 1. Bilateral pleural effusions and bilateral airspace disease.
--- NOTE | 2025-01-29 16:35 | PROGRESS NOTE- Residence ---
Progress Note - Resident Providers to CC Resident Creating Document: LEILANI MILLS, VARGAS ~ Antibiotic Timeout Antibiotic Ordered?: No Subjective Seen and examined at the patient. Patient is lying comfortably in the bed. Objective Vital Signs Date Time Temp Pulse Resp B/P (MAP) Pulse Ox O2 Delivery O2 Flow Rate FiO2 01/29/25 13:01 8 01/28/25 20:00 Room Air 01/28/25 18:00 97.4 63 80/37 (51) 81 01/28/25 11:00 2.0 Result Diagram: 01/28/25 0840 01/28/25 0840 General: Patient is trended, lying on the bed comfortably Head: Normocephalic and atraumatic. Eyes: Conjunctival normal. EOMI. PERRL. ENT: Mucous membranes moist. Neck: Supple, trachea is midline. Chest: Clear to auscultation bilaterally without rales, rhonchi, or wheezes. There is no accessory muscle use or retractions. Cardiac: RRR without murmurs, gallops, or rubs. Neuro: Noted residual right-sided deficits Plan Plan Assessment This is a 79-year-old female with past medical history of stroke with a residual right-sided deficit, atrial fibrillation, large decubitus ulcer on sacrum, CKD was transferred from [place] [facility] where she presented for altered mental status, 4-5 days of vomiting and diarrhea. Workup with the facility showed sepsis with UTI. Was on vasopressors at the time of transfer. [employer] blood cultures panel showed positive for Enterobacter H and E coli. Urine cultures grew Enterobacter faecalis, E coli she was on meropenem. Continued Levophed drip. She was started on CVVH for GENE, metabolic acidosis, hypokalemia. Was on amiodarone drip for atrial fibrillation. Was also on albumin. Dr. Barney spoke today to the patient's son Mr. Chidi mir in his niece, the reported a very poor quality of life in the patient being bed-bound. After discussion with the patient's family they wanted her to be transition to comfort care. Plan Septic shock secondary to UTI Positive blood and urine cultures Stage IV decubitus ulcer Metabolic encephalopathy GENE AFib with rapid ventricular rate Comfort care measures -morphine Ativan p.r.n. Code status: DNR with comfort care Leilani Mills M.D PGY2 Addendum on comfort care Date of Service: Jan 29, 2025 Billing Provider: CAROL ANN MONROY MD, PRAVAHIKA, RES Jan 29, 2025 16:35 CAROL ANN MONROY MD Jan 29, 2025 22:28
[2025-01-29 20:30] VITALS: RESP 6
[2025-01-30 05:16] VITALS: RESP 8
[2025-01-30 05:17] LABS: HBSAG SCREEN Negative (Negative)
--- NOTE | 2025-01-30 11:45 | Death Certificate - Resident ---
Certificate Worksheet Date of Date of : Jan 30, 2025 Cause of / Time Intervals Cause of IMMEDIATE CAUSE Cardiopulmonary arrest Sepsis secondary to UTI A) positive blood cultures B) UTI C) metabolic encephalopathy D) GENE E) AFib with rapid ventricular rate Other Significant Conditions Other Significant Conditions Stage IV decubitus ulcer AFib with rapid ventricular rate GENE requiring CVVH Operations & Dates Performed Operations & Dates Performed None If Female, in Last YR.: No Biopsy: No First Time Seen.: Jan 24, 2025 Last time Seen: Jan 30, 2025 KENIA MILLS, RES Jan 30, 2025 11:45
--- NOTE | 2025-01-30 11:51 | DISCHARGE SUMMARY-Residence ---
Discharge Summary Providers to CC Resident Creating Document: KENIA MILLS RES ~ Discharge Summary Admission Diagnosis: Septic Shock Hospital Course DATE OF ADMISSION: 01/24/2025 DATE OF : 01/30/2025 0621 Discharge Diagnosis\Comment: Septic shock secondary to UTI Positive blood and urine cultures Stage IV decubitus ulcer Metabolic encephalopathy GENE AFib with rapid ventricular rate Operations\Procedures: None Consultants: Unix System Administrator, Dr. Savita Robertson Complications: None Condition on DC: Discharge Summary: This is a 79-year-old female with past medical history of stroke with a residual right-sided deficit, atrial fibrillation, large decubitus ulcer on sacrum, CKD was transferred from [place] [facility] where she presented for altered mental status, 4-5 days of vomiting and diarrhea. Workup with the facility showed sepsis with UTI. Was on vasopressors at the time of transfer. [employer] blood cultures panel showed positive for Enterobacter H and E coli. Urine cultures grew Enterobacter faecalis, E coli she was on meropenem. Continued Levophed drip. She was started on CVVH for GENE, metabolic acidosis, hypokalemia. Was on amiodarone drip for atrial fibrillation. Was also on albumin. Dr. Barney spoke to the patient's son Mr. Chidi mir in his niece, the reported a very poor quality of life in the patient being bed-bound. After discussion with the patient's family they wanted her to be transition to comfort care. The patient on 01/30/2025 at 0621 *Problems/Diagnosis: (1) Acute respiratory failure (2) GENE (acute kidney injury) (3) Sepsis Status: Acute (4) Decubitus ulcer Status: Acute Total Time Spent on D/C: Up to 30 Minutes Date of Service: Jan 30, 2025 Billing Provider: CAROL ANN MONROY MD Common Visit Codes: 17165-UKF/OBS DISCH DAY >30min KENIA MILLS RES Jan 30, 2025 11:51 CAROL ANN MONROY MD Jan 30, 2025 22:22
== END 2025-01-30 10:40 | DRG 871 ==
LOC: ER 03:14 → ED HOLD 05:01 → CICU 2S 06:02 → SUR 3N 01-28 16:41
PROVIDERS: ADMIT Internal Medicine Sleep Medicine; ATTEND Internal Medicine Sleep Medicine
PROC: 02HV33Z Insertion of Infusion Device into Superior Vena Cava, Percutaneous Approach (ICD-10-PCS; principal; 2025-01-25)
PROC: B548ZZA Ultrasonography of Superior Vena Cava, Guidance (ICD-10-PCS; 2025-01-25)
PROC: 02HV33Z Insertion of Infusion Device into Superior Vena Cava, Percutaneous Approach (ICD-10-PCS; 2025-01-25)
PROC: B548ZZA Ultrasonography of Superior Vena Cava, Guidance (ICD-10-PCS; 2025-01-25)
PROC: 30233N1 Transfusion of Nonautologous Red Blood Cells into Peripheral Vein, Percutaneous Approach (ICD-10-PCS; 2025-01-25)
PROC: 6A550Z3 Pheresis of Plasma, Single (ICD-10-PCS; 2025-01-25)
PROC: 5A1D90Z Performance of Urinary Filtration, Continuous, Greater than 18 hours Per Day (ICD-10-PCS; 2025-01-26)
DX: A41.9 Sepsis, unspecified organism (principal); E43 Unspecified severe protein-calorie malnutrition; L89.154 Pressure ulcer of sacral region, stage 4; R65.21 Severe sepsis with septic shock; J96.01 Acute respiratory failure with hypoxia; G93.41 Metabolic encephalopathy; N17.9 Acute kidney failure, unspecified; N39.0 Urinary tract infection, site not specified; E87.1 Hypo-osmolality and hyponatremia; Z66 Do not resuscitate; E78.00 Pure hypercholesterolemia, unspecified; K21.9 Gastro-esophageal reflux disease without esophagitis; D64.9 Anemia, unspecified; I48.91 Unspecified atrial fibrillation; I12.9 Hypertensive chronic kidney disease with stage 1 through stage 4 chronic kidney disease, or unspecified chronic kidney disease; E11.22 Type 2 diabetes mellitus with diabetic chronic kidney disease; N18.9 Chronic kidney disease, unspecified; E83.42 Hypomagnesemia; E88.09 Other disorders of plasma-protein metabolism, not elsewhere classified; E87.6 Hypokalemia; Z68.30 Body mass index [BMI] 30.0-30.9, adult; Z88.8 Allergy status to other drugs, medicaments and biological substances; Z79.01 Long term (current) use of anticoagulants; Z79.899 Other long term (current) drug therapy; Z51.5 Encounter for palliative care; Z74.01 Bed confinement status
CPT/HCPCS: 36415; 36430; 36600; 71045; 76770; 80048; 80069; 80305; 81001; 82272; 82330; 82570; 82728; 82803; 82948; 83036; 83540; 83605; 83735; 83880; 83930; 83935; 84133; 84145; 84156; 84300; 84439; 84443; 84466; 84480; 84540; 85007; 85008; 85018; 85025; 85027; 86885; 86900; 86901; 86920; 87077; 87088; 87186; 87324; 87340; 87449; 92508; 92616; 93005; 93306; 93971; 96365; 99291; A4314; A4615; A4620; A6196; A6212; A6213; A6253; A6258; A6446; A6449; C1751; C1752; E1594; G0378; J0282; J0696; J1171; J1644; J1815; J2060; J2185; J2274; J3480; J3490; J7030; J7040; J7060; J7070; J7120; P9016; P9045; P9047